=== PATIENT | male | born 1960 | race Caucasian/White ===

== ENCOUNTER 2016-12-28 21:20 | Emergency (ER) | payer OTHER ==
[2016-12-28 21:43] VITALS: PULSE 80; TEMP 98.6; BMI 22.9
[2016-12-28] MEDS ORDERED: METOPROLOL TARTRATE 5 MG/5 ML VIAL IVPUSH ONE (21:56)
--- NOTE | 2016-12-28 21:56 | PDOC ---
History of Present Illness - History of Present Illness Initial Comments: 12/28/16 21:59 The patient is a 56-year-old male, with a significant past medical history of HTN, cardiac stent (placed in June after getting cardiac workup), who presents to the ED with nose bleed. Patient states that he was walking when he sneezed and noted blood coming from his left nostril. Pt was not able to control the bleeding and reported to the ED for further evaluation. Patient is actively bleeding from nose in ER. The patient denies any nausea or vomiting. The patient denies any dizziness or lightheadedness. <Violetta Gage - Last Filed: 12/28/16 23:13> - General History Source: Patient <Kenan Mccall - Last Filed: 12/29/16 01:21> - General Chief Complaint: Hemoptysis Stated Complaint: NOSEBLEED Time Seen by Provider: 12/28/16 21:34 Past History <Violetta Gage - Last Filed: 12/28/16 23:13> - Past Medical History HTN: Yes - Psycho/Social/Smoking Cessation Hx Suicidal Ideation: No Smoking History: Current every day smoker Number of Cigarettes Smoked Daily: 20 Information on smoking cessation initiated: No Hx Alcohol Use: No Drug/Substance Use Hx: No Substance Use Type: None <Kenan Mccall - Last Filed: 12/29/16 01:21> - Past Medical History Allergies/Adverse Reactions: Allergies Allergy/AdvReac Type Severity Reaction Status Date / Time No Known Allergies Allergy Verified 12/28/16 21:26 Home Medications: Ambulatory Orders Unobtainable [Unobtainable] 12/28/16 Review of Systems - Review of Systems Able to Perform ROS?: Yes Comments:: 12/28/16 21:59 CONSTITUTIONAL: Absent: fever, no chills, no fatigue EYES: Absent: visual changes ENT: Present: nosebleed Absent: ear pain, no sore throat CARDIOVASCULAR: Absent: chest pain, no palpitations RESPIRATORY: Absent: cough, no SOB GI: Absent: abdominal pain, no nausea, no vomiting, no constipation, no diarrhea GENITOURINARY: Absent: dysuria, no frequency, no hematuria MUSKULOSKELETAL: Absent: back pain, no arthralgia, no myalgia SKIN: Absent: rash NEURO: Absent: headache <Violetta Gage - Last Filed: 12/28/16 23:13> *Physical Exam - Vital Signs Last Vital Signs Temp Pulse Resp BP Pulse Ox 98.6 F 80 18 166/109 99 12/28/16 21:24 12/28/16 21:24 12/28/16 21:24 12/28/16 21:24 12/28/16 21:24 - Physical Exam Comments: 12/28/16 21:59 GENERAL: Well-appearing, well-nourished. No apparent distress. HEENT: Normocephalic, atraumatic. PERRL, EOM intact. +Blood coming from left nostril. CARDIOVASCULAR: Normal S1, S2. Regular rate and rhythm. PULMONARY: Clear to auscultation bilaterally. ABDOMEN: Soft, non-distended, non-tender. EXTREMITIES: Normal ROM in all four extremities. No gross deformities. SKIN: Warm, dry. No rash NEUROLOGICAL: No focal neurological deficits. <Violetta Gage - Last Filed: 12/28/16 23:13> - Vital Signs Last Vital Signs Temp Pulse Resp BP Pulse Ox 98.6 F 80 18 166/109 99 12/28/16 21:24 12/28/16 21:24 12/28/16 21:24 12/28/16 21:24 12/28/16 21:24 <Kenan Mccall - Last Filed: 12/29/16 01:21> ED Treatment Course - LABORATORY CBC & Chemistry Diagram: 12/28/16 22:00 12/28/16 22:00 <Violetta Gage - Last Filed: 12/28/16 23:13> - LABORATORY CBC & Chemistry Diagram: 12/28/16 22:00 12/28/16 22:00 <Kenan Mccall - Last Filed: 12/29/16 01:21> Medical Decision Making - Medical Decision Making 12/28/16 23:07 Dr. Mccall: The scribe's documentation has been prepared under my direction and personally reviewed by me in its entirery. I confirm that the note above accurately reflects all work, treatment, procedures, and medical decision making performed by me. used inflatable Rhino rocket to left nares to tamponade bleeding will observe 12/29/16 01:19 Now right side is packed with another Rhino rocket. Pt will be discharged to follow up with ENT later this morning. <Kenan Mccall - Last Filed: 12/29/16 01:21> *DC/Admit/Observation/Transfer - Attestations Scribe Attestion: 12/28/16 22:00 Documentation prepared by Violetta Gage, acting as medical office assistant instructor for Kenan Mccall MD. <Violetta Gage - Last Filed: 12/28/16 23:13> - Discharge Dispostion Admit: No <Kenan Mccall - Last Filed: 12/29/16 01:21> Diagnosis at time of Disposition: Epistaxis - Discharge Dispostion Disposition: HOME - Referrals Referrals: Memo Sanchez MD [Staff Physician] - - Patient Instructions Printed Discharge Instructions: DI for Nosebleed Additional Instructions: Please see Dr. Sanchez in the morning to have packing removed. Sleep with head very elevated to prevent further complications. Say you need to be seen to have Rhino Rockets removed.
[2016-12-28] MEDS ORDERED: METOPROLOL TARTRATE 5 MG/5 ML VIAL ONE (22:00)
[2016-12-28 22:17] LABS: EOSINOPHIL 10.2 % (0-4.5); MCHC 33.4 g/dl (32.0-35.9); MEAN CELL VOLUME 98.6 fl (80-96); MEAN PLT VOLUME 7.8 fl (7.5-11.1); NEUTROPHILS 58.5 % (42.8-82.8); PLATELET COUNT 411 K/MM3 (134-434); RDW 13.8 % (11.9-15.9); WHITE BLOOD COUNT 13.2 K/mm3 (4.0-10.0)
[2016-12-28 22:31] LABS: INR 0.91 (0.82-1.09)
[2016-12-28 22:33] LABS: ACTIVATED PTT 32.7 SECONDS (26.9-34.4)
[2016-12-28 22:54] LABS: ALBUMIN 4.1 g/dl (3.4-5.0); ALK PHOS 97 U/L (45-117); ANION GAP 11 (8-16); BILIRUBIN,TOTAL 0.4 mg/dL (0.2-1.0); CALCIUM 8.9 mg/dL (8.5-10.1); CO2 22 mmol/L (21-32); CREATININE 0.9 mg/dL (0.7-1.3); GLUCOSE,RANDOM 105 mg/dL (74-106); SGOT/AST 19 U/L (15-37); SGPT/ALT 24 U/L (12-78); TOT PROT 7.2 g/dl (6.4-8.2)
[2016-12-29 01:01] VITALS: BP 119/85
--- NOTE | 2016-12-29 04:19 | PN ---
<Alesia Rodriguez - Last Filed: 12/29/16 04:17> Teaching Attending Note Name of Resident: Nessa Corrales ASSESSMENT AND PLAN: <Tonya Mckeon - Last Filed: 12/29/16 04:51> Teaching Attending Note ATTENDING PHYSICIAN STATEMENT I saw and evaluated the patient. I reviewed the resident's note and discussed the case with the resident. I agree with the resident's findings and plan as documented. SUBJECTIVE: 56 yo M presents to the ED with a persistent nose bleed. Pt states that earlier today he was walking and his R nostril started spontaneously bleeding. Pt reported to the ED and was discharged with a rhino rocket but sneezed it out and returned to the ED still bleeding. Pt states he had nosebleeds as a kid but hasnt had once since his childhood. PMHx: HTN, cardiac stent (placed in June after getting cardiac workup) Allergies: penicillin Family Hx: brother has ALS OBJECTIVE: Last Vital Signs Temp Pulse Resp BP Pulse Ox 98.6 F 80 18 119/85 99 12/28/16 21:24 12/28/16 22:09 12/28/16 21:24 12/29/16 01:01 12/28/16 21:24 GENERAL: Awake, alert, and fully oriented, in no acute distress HEENT: Bilateral rhino rockets in place. PERRLA, EOMI. Moist mucosa. No JVD LUNGS: No distress, speaks full sentences, clear to auscultation bilaterally HEART: Regular rate and rhythm, normal S1 and S2, no murmurs, rubs or gallops, peripheral pulses normal and equal bilaterally. ABDOMEN: Soft, nontender, normoactive bowel sounds. No guarding, no rebound. No masses EXTREMITIES: Normal inspection, Normal range of motion, no edema. No clubbing or Cyanosis. NEUROLOGICAL: Cranial nerves II through XII grossly intact. Normal speech, normal gait, no focal sensorimotor deficits SKIN: Warm, Dry, normal turgor, no rashes or lesions noted. CBCD WBC 13.2 K/mm3 (4.0-10.0) H 12/28/16 22:00 RBC 4.20 M/mm3 (4.00-5.60) 12/28/16 22:00 Hgb 13.8 GM/dL (11.7-16.9) 12/28/16 22:00 Hct 41.4 % (35.4-49) 12/28/16 22:00 MCV 98.6 fl (80-96) H 12/28/16 22:00 MCHC 33.4 g/dl (32.0-35.9) 12/28/16 22:00 RDW 13.8 % (11.9-15.9) 12/28/16 22:00 Plt Count 411 K/MM3 (134-434) 12/28/16 22:00 MPV 7.8 fl (7.5-11.1) 12/28/16 22:00 CMP Sodium 141 mmol/L (136-145) 12/28/16 22:00 Potassium 4.1 mmol/L (3.5-5.1) 12/28/16 22:00 Chloride 108 mmol/L (98-107) H 12/28/16 22:00 Carbon Dioxide 22 mmol/L (21-32) 12/28/16 22:00 Anion Gap 11 (8-16) 12/28/16 22:00 BUN 15 mg/dL (7-18) 12/28/16 22:00 Creatinine 0.9 mg/dL (0.7-1.3) 12/28/16 22:00 Creat Clearance w eGFR > 60 (>60) 12/28/16 22:00 Calcium 8.9 mg/dL (8.5-10.1) 12/28/16 22:00 Total Bilirubin 0.4 mg/dL (0.2-1.0) 12/28/16 22:00 AST 19 U/L (15-37) 12/28/16 22:00 ALT 24 U/L (12-78) 12/28/16 22:00 Alkaline Phosphatase 97 U/L (45-117) 12/28/16 22:00 Total Protein 7.2 g/dl (6.4-8.2) 12/28/16 22:00 Albumin 4.1 g/dl (3.4-5.0) 12/28/16 22:00 ASSESSMENT AND PLAN: 1.) Epistaxis - 1 STAT dose of IV Clindamycin - ENT consult in AM - hold aspirin and anticoagulation therapy for today. Restart tomorrow. - Zofran PRN - Repeat CBC in 12 hours Documentation is prepared by Tonya Sermania acting as medical videographer for Alesia Rodriguez M.D.
== END 2016-12-29 01:28 | disposition home or self-care (01) ==
LOC: JER 21:20
PROC: 2Y41X5Z Packing of Nasal Region using Packing Material (ICD-10-PCS; principal; 2016-12-28)
PROC: 3E033GC Introduction of Other Therapeutic Substance into Peripheral Vein, Percutaneous Approach (ICD-10-PCS; 2016-12-28)
DX: R04.0 Epistaxis (principal); I10 Essential (primary) hypertension; Z95.5 Presence of coronary angioplasty implant and graft; F17.210 Nicotine dependence, cigarettes, uncomplicated
CPT/HCPCS: 36415; 80053; 85025; 85610; 85730; 86850; 86900; 86901; 99282-25

== ENCOUNTER 2016-12-29 03:07 | Observation (INO) | payer OTHER ==
[2016-12-29] MEDS ORDERED: SODIUM CHLORIDE 1,000 ML IV STA (03:18)
--- NOTE | 2016-12-29 03:18 | PDOC ---
History of Present Illness - General History Source: Patient Exam Limitations: No Limitations - History of Present Illness Initial Comments: 12/29/16 03:51 The patient is a 56-year-old male, with a significant past medical history of HTN, cardiac stent (placed in June after getting cardiac workup), who presents to the ED with nose bleed. Patient states that he was walking when he sneezed and noted blood coming from his left nostril. Pt bleeding had stopped and patient was discharged from ED. While driving home, patient wa experiencing some discomfort with the rhino rockets in his nostrils. Pt presents to the ED once again after expelling rhino rockets from nose by sneezing. The patient denies having any other complaints. <Violetta Gage - Last Filed: 12/29/16 05:03> - General History Source: Patient <Kenan Mccall - Last Filed: 01/01/17 20:21> - General Stated Complaint: NOSEBLEED Time Seen by Provider: 12/29/16 03:12 Past History <Violetta Gage - Last Filed: 12/29/16 05:03> - Past Medical History HTN: Yes - Psycho/Social/Smoking Cessation Hx Suicidal Ideation: No Smoking History: Current every day smoker Number of Cigarettes Smoked Daily: 20 Hx Alcohol Use: No Drug/Substance Use Hx: No Substance Use Type: None <Kenan Mccall - Last Filed: 01/01/17 20:21> - Past Medical History Allergies/Adverse Reactions: Allergies Allergy/AdvReac Type Severity Reaction Status Date / Time No Known Allergies Allergy Verified 12/29/16 03:20 Home Medications: Ambulatory Orders Amlodipine Besylate 5 mg PO DAILY 12/29/16 Aspirin [ASA -] 81 mg PO DAILY 12/29/16 Atorvastatin Ca [Lipitor] 40 mg PO DAILY 12/29/16 Metoprolol Succinate [Toprol XL -] 100 mg PO DAILY 12/29/16 Prasugrel Hydrochloride [Effient -] 10 mg PO DAILY 12/29/16 Oxymetazoline 0.05% Nasal Soln [Afrin -] 1 spray NS DAILY PRN #1 spray 12/30/16 Review of Systems - Review of Systems Able to Perform ROS?: Yes Comments:: 12/29/16 03:51 CONSTITUTIONAL: Absent: fever, no chills, no fatigue EYES: Absent: visual changes ENT: Present: nosebleed Absent: ear pain, no sore throat CARDIOVASCULAR: Absent: chest pain, no palpitations RESPIRATORY: Absent: cough, no SOB GI: Absent: abdominal pain, no nausea, no vomiting, no constipation, no diarrhea GENITOURINARY: Absent: dysuria, no frequency, no hematuria MUSKULOSKELETAL: Absent: back pain, no arthralgia, no myalgia SKIN: Absent: rash NEURO: Absent: headache <Violetta Gage - Last Filed: 12/29/16 05:03> *Physical Exam - Vital Signs Last Vital Signs Temp Pulse Resp BP Pulse Ox 98.3 F 65 19 100/75 97 12/29/16 03:21 12/29/16 03:21 12/29/16 03:21 12/29/16 03:21 12/29/16 03:21 - Physical Exam Comments: 12/29/16 03:52 GENERAL: Well-appearing, well-nourished. No apparent distress. HEENT: Normocephalic, atraumatic. PERRL, EOM intact. +Bilateral bright red blood from nares. CARDIOVASCULAR: Normal S1, S2. Regular rate and rhythm. PULMONARY: Clear to auscultation bilaterally. ABDOMEN: Soft, non-distended, non-tender. EXTREMITIES: Normal ROM in all four extremities. No gross deformities. SKIN: Warm, dry. No rash NEUROLOGICAL: No focal neurological deficits. <TooVioletta - Last Filed: 12/29/16 05:03> Heart Score/ECG Review - ECG Intrepretation Comment:: 12/29/16 05:03 EKG was reviewed by Dr. Mccall at 03:42. Impression: Sinus rhythm with short ID with occasional premature ventricular complexes. Vent. rate: 92 bpm ID interval: 110 ms QTc: 422 ms <Violetta Gage - Last Filed: 12/29/16 05:03> ED Treatment Course - LABORATORY CBC & Chemistry Diagram: 12/30/16 15:10 <Kenan Mccall - Last Filed: 01/01/17 20:21> Medical Decision Making - Medical Decision Making 01/01/17 20:20 Dr. Mccall: The scribe's documentation has been prepared under my direction and personally reviewed by me in its entirery. I confirm that the note above accurately reflects all work, treatment, procedures, and medical decision making performed by me. <Kenan Mccall - Last Filed: 01/01/17 20:21> *DC/Admit/Observation/Transfer - Attestations Scribe Attestion: 12/29/16 03:53 Documentation prepared by Violetta Gage, acting as medical record transcriber for Kenan Mccall MD. <Violetta Gage - Last Filed: 12/29/16 05:03> - Discharge Dispostion Admit: Yes <Kenan Mccall - Last Filed: 01/01/17 20:21> Diagnosis at time of Disposition: Epistaxis - Discharge Dispostion Disposition: HOME Condition at time of disposition: Stable - Prescriptions - Referrals
[2016-12-29] MEDS ORDERED: ONDANSETRON 4 MG/2 ML VIAL IVPB PRN (04:36)
[2016-12-29] MEDS ORDERED: ONDANSETRON 4 MG/2 ML VIAL IVPUSH ONE (04:36)
[2016-12-29] MEDS ORDERED: CLINDAMYCIN 300 MG PREMIX IVPB 50 ML IVPB ONE (04:56)
--- NOTE | 2016-12-29 05:03 | HP ---
CHIEF COMPLAINT: nose bleed PCP: HISTORY OF PRESENT ILLNESS: This is a 56 year old male with a past medical history of hypertension, CAD, s/ p cardiac stent in June, presents to the emergency room with complaints of non stop nosebleed. Patient was in his car driving and his left nostril began to bleed. HE came to the ER, packing was placed, he was sent home. Patient returns to the ER after nose again started to bleed. The only related event he can recall is that he sneezed. He does not get nose bleeds regularly. He s on aspirin and effient daily. He drinks alcohol daily. He drank 3-4 beers today. Smokes 1ppd. He states he recently had check up with primary, no active issue. IN the ER he was started on IVF, and bilateral rhino rockets were placed. He was given zofran for nausea. Hemoglobin and hematocrit remain stable. Recent Travel: no PAST MEDICAL HISTORY: hypertension, CAD PAST SURGICAL HISTORY: cardiac stent Social History: Smoking:yes 1ppd Alcohol:yeas depends; 3-4; 5-6 drinks daily Drugs: no Family History: Allergies No Known Allergies Allergy (Verified 12/29/16 03:20) HOME MEDICATIONS: Home Medications Medication Instructions Recorded Aspirin [ASA -] 81 mg PO DAILY 12/29/16 Metoprolol Succinate [Toprol Xl -] 25 mg PO DAILY 12/29/16 Prasugrel Hydrochloride [Effient -] 5 mg PO DAILY 12/29/16 REVIEW OF SYSTEMS CONSTITUTIONAL: Absent: fever, chills, diaphoresis, generalized weakness, malaise, loss of appetite, weight change HEENT: Positive: nose bleed Absent: rhinorrhea, nasal congestion, throat pain, throat swelling, difficulty swallowing, mouth swelling, ear pain, eye pain, visual changes CARDIOVASCULAR: Absent: chest pain, syncope, palpitations, irregular heart rate, lightheadedness , peripheral edema RESPIRATORY: Absent: cough, shortness of breath, dyspnea with exertion, orthopnea, wheezing, stridor, hemoptysis GASTROINTESTINAL: Absent: abdominal pain, abdominal distension, nausea, vomiting, diarrhea, constipation, melena, hematochezia GENITOURINARY: Absent: dysuria, frequency, urgency, hesitancy, hematuria, flank pain, genital pain MUSCULOSKELETAL: Absent: myalgia, arthralgia, joint swelling, back pain, neck pain SKIN: Absent: rash, itching, pallor HEMATOLOGIC/IMMUNOLOGIC: Absent: easy bleeding, easy bruising, lymphadenopathy, frequent infections ENDOCRINE: Absent: unexplained weight gain, unexplained weight loss, heat intolerance, cold intolerance NEUROLOGIC: Absent: headache, focal weakness or paresthesias, dizziness, unsteady gait, seizure, mental status changes, bladder or bowel incontinence PSYCHIATRIC: Absent: anxiety, depression, suicidal or homicidal ideation, hallucinations. PHYSICAL EXAMINATION Vital Signs - 24 hr 12/29/16 03:21 Temperature 98.3 F Pulse Rate 65 Respiratory 19 Rate Blood Pressure 100/75 O2 Sat by Pulse 97 Oximetry (%) GENERAL: Awake, alert, and fully oriented, in no acute distress, sitting up in bed coughing and spitting out blood. HEAD: Normal with no signs of trauma. EYES: Pupils equal, round and reactive to light, extraocular movements intact, sclera anicteric, conjunctiva clear. No lid lag. EARS, NOSE, THROAT: Ears normal, nares with bilateral bloody rhino rockets, oropharynx with dried and new blood NECK: Normal range of motion, supple without lymphadenopathy, JVD, or masses. LUNGS: Breath sounds equal, clear to auscultation bilaterally. No wheezes, and no crackles. No accessory muscle use. HEART: tachycardic and rhythm, normal S1 and S2 without murmur, rub or gallop. ABDOMEN: Soft, nontender, distended, normoactive bowel sounds, no guarding, no rebound, no masses. No hepatomegaly or splenomegaly. MUSCULOSKELETAL: Normal range of motion at all joints. No bony deformities or tenderness. No CVA tenderness. UPPER EXTREMITIES: 2+ pulses, warm, well-perfused. No cyanosis. No clubbing. No peripheral edema. LOWER EXTREMITIES: 2+ pulses, warm, well-perfused. No calf tenderness. No peripheral edema. NEUROLOGICAL: Cranial nerves II-XII intact. Normal speech. Normal gait. PSYCHIATRIC: Cooperative. Good eye contact. Appropriate mood and affect. SKIN: Warm, dry, normal turgor, no rashes or lesions noted, normal capillary refill. ASSESSMENT/PLAN: This is a 56 year old male with a past medical history of hypertension and CAD, presents to the emergency room with epistaxis, admitted under observation. #Epistaxis: -IVF, zofran 4mg q6h prn -bilateral rhino rockets -1 stat dose of clindamycin 300mg -hold anticoagulation -monitor heme/hct ; repeat in 12 hrs -ENT consult #leuckocytosis: -no acute signs of infection; no fever, chills, cough, sputum production -trend FEN Fluids: 125mls.hr NS Electrolytes: wnl Diet: low sodium VTE prophylaxis: n/a; currently bleeding Disposition: observation Problem List - Problem (1) Epistaxis Code(s): R04.0 - EPISTAXIS Visit type - Emergency Visit Emergency Visit: Yes ED Registration Date: 12/29/16 Care time: The patient presented to the Emergency Department on the above date and was hospitalized for further evaluation of their emergent condition. - New Patient This patient is new to me today: Yes Date on this admission: 12/29/16 - Critical Care Critical Care patient: No
[2016-12-29] MEDS ORDERED: ONDANSETRON 4 MG/2 ML VIAL ONE (05:40)
[2016-12-29] MEDS ORDERED: CLINDAMYCIN PHOSPHATE 600 MG/4 ML VIAL ONE (05:42)
[2016-12-29] MEDS: SODIUM CHLORIDE 1,000 ML IV SCH ×2 (05:52→19:00)
[2016-12-29 08:57] VITALS: BMI 21.9
[2016-12-29] MEDS ORDERED: METOPROLOL SUCCINATE 25 MG TAB.SR.24H (FP) PO SCH ×2 (10:00→15:01)
--- NOTE | 2016-12-29 10:23 | EKG ---
Test Reason : Blood Pressure : / mmHG Vent. Rate : 092 BPM Atrial Rate : 092 BPM P-R Int : 110 ms QRS Dur : 084 ms QT Int : 342 ms P-R-T Axes : 060 048 052 degrees QTc Int : 422 ms POOR DATA QUALITY, INTERPRETATION MAY BE ADVERSELY AFFECTED SINUS RHYTHM WITH SHORT OK WITH OCCASIONAL PREMATURE VENTRICULAR COMPLEXES NO PREVIOUS ECGS AVAILABLE Confirmed by BHUMI VERMA MD ([id number]) on 12/29/2016 10:22:56 AM Referred By: Confirmed By:BHUMI VERMA MD
--- NOTE | 2016-12-29 11:11 | PN ---
Physical Exam: SUBJECTIVE: Patient stated he blew off the rhino rockets packing and there has not been bleeding since last night. Denies genetic bleeding disorder, nasal use of cocaine or steroid, h/o nasal polylp, trauma, hempotypsis, dizziness, palpitation, chest pain, shortness of breath, n/v, fever or chills. OBJECTIVE: Vital Signs Period Temp Pulse Resp BP Sys/Mc[place]ur Pulse Ox Last 24 Hr 96 18 106-106/70-70 95-100 GENERAL: AAOx3, in no acute distress. HEAD: NT, AC EYES: PERRLA, sclera anicteric, conjunctiva clear ENT: dry blood in b/l nostrils, nares patent, no erythema, drainage, or mass, oropharynx clear without exudates, moist mucous membranes. NECK: Trachea midline, full range of motion, supple. LUNGS: CTAB HEART: RRR, S1, S2 without murmur, rub or gallop. ABDOMEN: Soft, nontender, nondistended, normoactive bowel sounds, no guarding, no rebound, no hepatosplenomegaly, no masses. EXTREMITIES: 2+ pulses, warm, well-perfused, no edema. NEUROLOGICAL: Cranial nerves II through XII grossly intact. Normal speech, gait not observed. PSYCH: Normal mood, normal affect. SKIN: Warm, dry, normal turgor, no rashes or lesions noted CBCD WBC 12.0 K/mm3 (4.0-10.0) H 12/29/16 13:40 RBC 2.71 M/mm3 (4.00-5.60) L 12/29/16 13:40 Hgb 9.0 GM/dL (11.7-16.9) L 12/29/16 13:40 Hct 26.8 % (35.4-49) L 12/29/16 13:40 MCV 99.0 fl (80-96) H 12/29/16 13:40 MCHC 33.7 g/dl (32.0-35.9) 12/29/16 13:40 RDW 13.9 % (11.9-15.9) 12/29/16 13:40 Plt Count 325 K/MM3 (134-434) 12/29/16 13:40 MPV 7.7 fl (7.5-11.1) 12/29/16 13:40 Active Medications Generic Name Dose Route Start Last Admin Trade Name Freq PRN Reason Stop Dose Admin Sodium Chloride 1,000 mls @ 125 mls/hr 12/29/16 05:00 12/29/16 05:52 Normal Saline - IV 125 mls/hr ASDIR SINA Administration Metoprolol Succinate 25 mg 12/29/16 10:00 Toprol Xl - PO DAILY SINA Ondansetron HCl 4 mg 12/29/16 04:36 Zofran Injection IVPB Q4H PRN NAUSEA AND/OR VOMITING ASSESSMENT/PLAN: 56 yo M with h/o HTN, CAD s/p stent on dual anti-platelet therapy (ASA and plasugrel) admitted to med-surg for epistaxis. Epistaxis - Resolved - Likely 2/2 anti-coagulants * ASA and plasugrel held - Cont. IVF - Rhino rocket and oxymetazoline nasal spray if re-bleed - ENT consult CAD, s/p stent - AC held - f/u with clay caster to re-assess bleeding risk HTN - hypotensive now - Hold toprolol FEN - IVF - Lytes normal - Na controlled diet Prophylaxis - DVT: AC held - GI: not indicated Dispo - Awaiting ENT consult Visit type - Emergency Visit Emergency Visit: No - New Patient This patient is new to me today: Yes Date on this admission: 12/30/16 - Critical Care Critical Care patient: No
[2016-12-29 11:12] LABS: BASOPHIL 0.5 % (0-2.0); EOSINOPHIL 1.9 % (0-4.5); MCH 33.3 pg (25.7-33.7); MCHC 33.3 g/dl (32.0-35.9); MEAN CELL VOLUME 100.2 fl (80-96); MEAN PLT VOLUME 7.9 fl (7.5-11.1); NEUTROPHILS 75.1 % (42.8-82.8); PLATELET COUNT 324 K/MM3 (134-434); RDW 13.9 % (11.9-15.9); WHITE BLOOD COUNT 13.1 K/mm3 (4.0-10.0)
[2016-12-29] MEDS: OXYMETAZOLINE 0.05% NASAL SOLUTION 15 ML BOTTLE NS PRN (13:00)
[2016-12-29 14:19] LABS: MCH 33.4 pg (25.7-33.7); MCHC 33.7 g/dl (32.0-35.9); MEAN PLT VOLUME 7.7 fl (7.5-11.1); PLATELET COUNT 325 K/MM3 (134-434); RDW 13.9 % (11.9-15.9)
[2016-12-29] MEDS ORDERED: PRASUGREL HCL 5 MG TAB PO SCH ×2 (14:45→15:01)
[2016-12-29] MEDS ORDERED: amLODIPine BESYLATE 10 MG TABLET (FP) PO SCH (14:45)
[2016-12-29] MEDS ORDERED: PT OWN MED DRAWER 7, Y5N ONE (16:25)
--- NOTE | 2016-12-29 16:27 | CON.ENT ---
Consult Consult Specialty:: ENT Reason for Consultation:: Nosebleed - History of Present Illness Chief Complaint: Sudden heavy nosebleed History of Present Illness: 56 yo male with hx of cardiac stent, on anticoagulation, who notes heavy nosebleed x2 yesterday requiring trips to the ER. Pt initially packed and sent home, he sneezed and pack was expelled. Bleeding returned, he then came to [facility] ER via ambulance. Bilateral packing was placed with control and was admitted. Again this am, he sneezed and packs came out. No bleeding since. He notes minor nosebleeds in the past. - History Source History Provided By: Patient Limitations to Obtaining History: No Limitations - Past Medical History Cardio/Vascular: Yes: CAD, HTN ENT: Yes: Other (nosebleeds) - Past Surgical History Additional Surgical History: cardiac stent - Alcohol/Substance Use Hx Alcohol Use: No - Smoking History Smoking history: Current every day smoker Have you smoked in the past 12 months: Yes Aproximately how many cigarettes per day: 20 Home Medications - Allergies Allergies/Adverse Reactions: Allergies Allergy/AdvReac Type Severity Reaction Status Date / Time No Known Allergies Allergy Verified 12/29/16 03:20 - Home Medications Home Medications: Ambulatory Orders Amlodipine Besylate 5 mg PO DAILY 12/29/16 Aspirin [ASA -] 81 mg PO DAILY 12/29/16 Atorvastatin Ca [Lipitor] 40 mg PO DAILY 12/29/16 Metoprolol Succinate [Toprol Xl -] 100 mg PO DAILY 12/29/16 Prasugrel Hydrochloride [Effient -] 10 mg PO DAILY 12/29/16 Family Disease History - Family Disease History Family History: Unremarkable Physical Exam-ENT Vital Signs: Vital Signs Temperature 98.3 F 12/29/16 13:53 Pulse Rate 76 12/29/16 13:53 Respiratory Rate 20 12/29/16 13:53 Blood Pressure 115/63 12/29/16 13:53 O2 Sat by Pulse Oximetry (%) 95 12/29/16 08:00 Problem List - Problems (1) Epistaxis Assessment/Plan: Recent heavy nosebleed- controlled with packing which has since come out. No lesions or residual bleeding noted on endoscopy. Keep nose moist with saline. Monitor and treat lowered Hematocrit as needed. Repack if bleeding occurs. Code(s): R04.0 - EPISTAXIS Procedure Note Procedure: Nasal endoscopy- after obtaining verbal consent, tropical anesthetic/ decongestant sprayed. Flexible endoscope passed into nasal cavities. Findings include- mildly deviated septum, pale mucosa. NO active bleeding sites, clots or scabs noted. NO lesions or infection noted.
--- NOTE | 2016-12-29 17:41 | PN ---
Teaching Attending Note Name of Resident: Meek Preciado ATTENDING PHYSICIAN STATEMENT I saw and evaluated the patient. I reviewed the resident's note and discussed the case with the resident. I agree with the resident's findings and plan as documented. SUBJECTIVE: No further epistaxis. OBJECTIVE: Vital Signs Period Temp Pulse Resp BP Sys/Mcarthur Pulse Ox Last 24 Hr 98 F-98.3 F 65-96 18-20 100-115/63-75 95-100 HEART: S1S2, RRR LUNGS: Clear ABDOMEN: Soft, non-tender, non-distended, normal BS EXTREMITIES: No edema ASSESSMENT AND PLAN: This is a 56 year old man with a history of HTN, CAD, stents who presented with a nosebleed. 1. Acute blood loss anemia secondary to epistaxis - No further bleeding - ENT consult appreciated - Will resume aspirin and Effient as cardiac stent was placed 6 months ago and monitor for bleeding 2. CAD, history of stent - Resume aspirin, Effient - Continue Toprol XL 3. HTN - hypotensive now - Hold toprolol 4. Leukocytosis - Likely reactive - Improving
[2016-12-29] MEDS: ASPIRIN 81 MG CHEWABLE TABLETS PO SCH (18:34)
[2016-12-29] MEDS: amLODIPine BESYLATE 10 MG TABLET (FP) PO SCH (18:34)
[2016-12-29] MEDS: PRASUGREL HCL 10 MG TAB PO SCH (18:35)
[2016-12-29] MEDS: METOPROLOL SUCCINATE 100 MG TAB.SR.24H (FP) PO SCH (18:39)
[2016-12-29] MEDS ORDERED: ATORVASTATIN CA 40 MG TABLET (FP) PO SCH (22:00)
[2016-12-30] MEDS: OXYMETAZOLINE 0.05% NASAL SOLUTION 15 ML BOTTLE NS PRN (02:11)
[2016-12-30] MEDS ORDERED: PT OWN MED DRAWER 7, Y5N ONE ×2 (02:19→10:03)
[2016-12-30 07:28] LABS: MCH 33.6 pg (25.7-33.7); MCHC 33.7 g/dl (32.0-35.9); MEAN CELL VOLUME 99.6 fl (80-96); MEAN PLT VOLUME 7.7 fl (7.5-11.1); PLATELET COUNT 290 K/MM3 (134-434); RDW 13.8 % (11.9-15.9); WHITE BLOOD COUNT 10.5 K/mm3 (4.0-10.0)
[2016-12-30] MEDS: amLODIPine BESYLATE 10 MG TABLET (FP) PO SCH (10:09)
[2016-12-30] MEDS: METOPROLOL SUCCINATE 100 MG TAB.SR.24H (FP) PO SCH (10:10)
[2016-12-30] MEDS: PRASUGREL HCL 10 MG TAB PO SCH (10:11)
[2016-12-30] MEDS: ASPIRIN 81 MG CHEWABLE TABLETS PO SCH (10:11)
--- NOTE | 2016-12-30 12:28 | PN ---
Physical Exam: SUBJECTIVE: Patient reported no bleeding per nostril since admission. Denies fever, chills, dizziness, syncope, chest pain, palpitation, or shortness of breath. OBJECTIVE: Vital Signs Period Temp Pulse Resp BP Sys/Mcarthur Pulse Ox Last 24 Hr 98.3 F-99.1 F 62-87 18-20 95-115/50-71 GENERAL: AAOx3, in no acute distress. HEAD: NT, AC EYES: PERRLA, sclera anicteric, conjunctiva clear ENT: nares patent bilaterally, no erythema, drainage, or mass, oropharynx clear without exudates, moist mucous membranes. NECK: Trachea midline, full range of motion, supple. LUNGS: CTAB HEART: RRR, S1, S2 without murmur, rub or gallop. ABDOMEN: Soft, nontender, nondistended, normoactive bowel sounds, no guarding, no rebound, no hepatosplenomegaly, no masses. EXTREMITIES: 2+ pulses, warm, well-perfused, no edema. NEUROLOGICAL: Cranial nerves II through XII grossly intact. Normal speech, gait not observed. PSYCH: Normal mood, normal affect. SKIN: Warm, dry, normal turgor, no rashes or lesions noted CBCD WBC 10.5 K/mm3 (4.0-10.0) H 12/30/16 06:00 RBC 2.36 M/mm3 (4.00-5.60) L 12/30/16 06:00 Hgb 7.9 GM/dL (11.7-16.9) L D 12/30/16 06:00 Hct 23.5 % (35.4-49) L 12/30/16 06:00 MCV 99.6 fl (80-96) H 12/30/16 06:00 MCHC 33.7 g/dl (32.0-35.9) 12/30/16 06:00 RDW 13.8 % (11.9-15.9) 12/30/16 06:00 Plt Count 290 K/MM3 (134-434) 12/30/16 06:00 MPV 7.7 fl (7.5-11.1) 12/30/16 06:00 Active Medications Generic Name Dose Route Start Last Admin Trade Name Freq PRN Reason Stop Dose Admin Amlodipine Besylate 5 mg 12/29/16 15:15 12/30/16 10:09 Norvasc - PO Not Given DAILY SINA Aspirin 81 mg 12/29/16 14:45 12/30/16 10:11 Asa - PO 81 mg DAILY SINA Administration Atorvastatin Calcium 40 mg 12/29/16 22:00 12/29/16 22:30 Lipitor - PO 40 mg HS SINA Administration Sodium Chloride 1,000 mls @ 125 mls/hr 12/29/16 05:00 12/29/16 19:00 Normal Saline - IV 125 mls/hr ASDIR SINA Administration Metoprolol Succinate 100 mg 12/29/16 16:45 12/30/16 10:10 Toprol Xl - PO Not Given DAILY SINA Ondansetron HCl 4 mg 12/29/16 04:36 Zofran Injection IVPB Q4H PRN NAUSEA AND/OR VOMITING Oxymetazoline HCl 2 spray 12/29/16 11:09 12/30/16 02:11 Afrin - NS 2 spray BID PRN Administration NASAL CONGESTION Prasugrel 10 mg 12/29/16 16:45 12/30/16 10:11 Effient - PO 10 mg DAILY SINA Administration ASSESSMENT/PLAN: 56 yo M with h/o HTN, CAD s/p stent on dual anti-platelet therapy (ASA and plasugrel) admitted to med-surg for epistaxis. Acute anemia - Likely 2/2 epistaxis - H/H acute downward trend - 1 PRBC - Cont. IVF - Recheck CBC Epistaxis - Resolved - Likely 2/2 anti-coagulants - Oxymetazoline nasal spray BID - Nasal endoscopy showed no active bleeding per ENT CAD, s/p stent - Resumed AC - f/u with splitting machine operator helper as outpatient to re-assess bleeding risk HTN - BP in low 100s systolic - Cont. toprolol for now, may hold it if symptomatic FEN - IVF - Lytes normal - Na controlled diet Prophylaxis - DVT: on ASA and Effient - GI: not indicated Dispo - Trend H&H Visit type - Emergency Visit Emergency Visit: No - New Patient This patient is new to me today: No - Critical Care Critical Care patient: No
[2016-12-30 12:56] VITALS: PULSE 69
--- NOTE | 2016-12-30 14:23 | PN ---
Teaching Attending Note Name of Resident: Meek Preciado ATTENDING PHYSICIAN STATEMENT I saw and evaluated the patient. I reviewed the resident's note and discussed the case with the resident. I agree with the resident's findings and plan as documented. SUBJECTIVE: Patient has no complaints. No epistaxis. OBJECTIVE: Vital Signs Period Temp Pulse Resp BP Sys/Mcarthur Pulse Ox Last 24 Hr 98.4 F-99.1 F 62-87 18-18 95-106/50-71 HEART: S1S2, RRR LUNGS: Clear ABDOMEN: Soft, non-tender, non-distended, normal BS EXTREMITIES: No edema ASSESSMENT AND PLAN: This is a 56 year old man with a history of HTN, CAD, stents who presented with a nosebleed. 1. Acute blood loss anemia secondary to epistaxis - No further bleeding noted however, hemoglobin is 7.9 today - Transfuse 1 unit PRBCs as patient has history of CAD - If hemoglobin improves appropriately and BP is stable, he can be discharged home - Aspirin, Effient restarted as patient as history of CAD with stent 6 months ago 2. CAD, history of stent - Continue aspirin, Effient, Toprol XL 3. HTN - BP remains borderline low - Transfuse 1 unit PRBCs - Continue to hold Toprol XL, Norvasc 4. Leukocytosis - Likely reactive - Improving
[2016-12-30 15:23] VITALS: BP 110/75; TEMP 98.1
[2016-12-30 16:30] LABS: MCH 32.5 pg (25.7-33.7); MCHC 33.6 g/dl (32.0-35.9); MEAN CELL VOLUME 96.6 fl (80-96); MEAN PLT VOLUME 8.2 fl (7.5-11.1); PLATELET COUNT 306 K/MM3 (134-434); WHITE BLOOD COUNT 10.7 K/mm3 (4.0-10.0)
--- NOTE | 2016-12-30 17:18 | DS ---
Physical Exam: HOSPITAL COURSE: Date of Admission:12/29/16 56 yo M with h/o HTN, CAD s/p stent on dual anti-platelet therapy (ASA and plasugrel) admitted to [facility]-surg for epistaxis. He was treated with rhino rockets and bleeding stopped since ED admission. It's likely due to the dual anti-coagulants that the patient is taking for his freshly placed cardiac stents. Discussed with his cosmetologist and decision was made to cont. the patient on anticoagulation. ENT also saw the patient but no active bleeding was seen through endoscope. However, patient had acute drop in H&H, for which he received a unit of PRBC with appropriate response. He's now in stable condition to be discharged home. He will follow up with his cosmetologist to discuss the benefit vs. risk on anticoagulation and advised to come back in ED if he experience bleeding again. Date of Discharge: 12/30/16 Minutes to complete discharge: 35 Discharge Summary Reason For Visit: EPISTAXIS Condition: Stable - Instructions Diet, Activity, Other Instructions: Instruction for continuing care: You were admitted to the hospital because of nose bleed. It's likely because you are on blood thinners. You were observed for 24 hours and have not bled since admission. You also received 1 unit of blood transfusion because your blood count was low. You are now in stable condition to be discharged home. You need to follow up with your cosmetologist and primary doctor within a week to discuss the benefit vs. risk of blood thinners. Please use Afrin nasal spray once a day and come in to the ER if your nose bleeds again. Referrals: Scott Pires MD [Staff Physician] - Memo Martinez MD [Primary Care Provider] - Disposition: HOME - Home Medications Comprehensive Discharge Medication List: Ambulatory Orders Amlodipine Besylate 5 mg PO DAILY 12/29/16 Aspirin [ASA -] 81 mg PO DAILY 12/29/16 Atorvastatin Ca [Lipitor] 40 mg PO DAILY 12/29/16 Metoprolol Succinate [Toprol XL -] 100 mg PO DAILY 12/29/16 Prasugrel Hydrochloride [Effient -] 10 mg PO DAILY 12/29/16 Oxymetazoline 0.05% Nasal Soln [Afrin -] 1 spray NS DAILY PRN #1 spray 12/30/16 This patient is new to me today: No Emergency Visit: No Critical Care patient: No - Discharge Referral Referred to [facility] No
== END 2016-12-30 18:23 | disposition home or self-care (01) ==
LOC: JER 03:07 → JERBED 04:07 → INTOOBSV 05:24 → JERBED 05:24 → UNDOADMOB 05:24 → JERBED 07:32 → J7W 07:32
PROVIDERS: ADMIT Internal Medicine; ATTEND Internal Medicine
PROC: 09JY4ZZ Inspection of Sinus, Percutaneous Endoscopic Approach (ICD-10-PCS; principal; 2016-12-29)
PROC: 2Y41X5Z Packing of Nasal Region using Packing Material (ICD-10-PCS; 2016-12-29)
PROC: 3E03329 Introduction of Other Anti-infective into Peripheral Vein, Percutaneous Approach (ICD-10-PCS; 2016-12-29)
PROC: 3E033GC Introduction of Other Therapeutic Substance into Peripheral Vein, Percutaneous Approach (ICD-10-PCS; 2016-12-29)
PROC: 3E0337Z Introduction of Electrolytic and Water Balance Substance into Peripheral Vein, Percutaneous Approach (ICD-10-PCS; 2016-12-29)
DX: R04.0 Epistaxis (principal); I10 Essential (primary) hypertension; I25.10 Atherosclerotic heart disease of native coronary artery without angina pectoris; F17.210 Nicotine dependence, cigarettes, uncomplicated; Z95.5 Presence of coronary angioplasty implant and graft; Z79.82 Long term (current) use of aspirin; Z79.01 Long term (current) use of anticoagulants; D62 Acute posthemorrhagic anemia; D72.829 Elevated white blood cell count, unspecified
CPT/HCPCS: 36415; 36430; 36511; 71010-TC; 85025; 85027; 86850; 86900; 86901; 86922; 93005; 93010; 99284-25; G0378; P9038; P9058

== ENCOUNTER 2017-07-24 01:01 | Emergency (ER) | payer OTHER ==
[2017-07-24 03:25] VITALS: BP 145/94; PULSE 82; TEMP 97.9; BMI 22.9
[2017-07-24] MEDS ORDERED: ACETAMINOPHEN 325 MG TABLET (FP) PO ONE (04:10)
--- NOTE | 2017-07-24 04:11 | PDOC ---
History of Present Illness - History of Present Illness Initial Comments: 07/24/17 04:31 This is a 56 year old male with a past medical history of hypertension, CAD, s/ p cardiac stent in June 2016, who presents to the ED for left arm pain s/p slip and fall yesterday evening. Patient states that he slipped on an icy pavement while leaving a friends house. He states that he fell and hit back of head, denies loss of consciousness. He sustained a contusion to his left shoulder. Patient states that he proceeded to drive home. He states that the pain in his left shoulder is what brought him here to the ED. And complains that he is unable to move left shoulder. He denies nausea,vomiting. Admits to minimal headache. PCP: Memo Martinez <Mariana Thornton - Last Filed: 07/24/17 04:30> - General History Source: Patient <Kenan Mccall - Last Filed: 07/24/17 05:00> - General Chief Complaint: Injury Stated Complaint: FALL,HEAD/LT ARM PAIN Time Seen by Provider: 07/24/17 04:08 Past History <Mariana Thornton - Last Filed: 07/24/17 04:30> - Past Medical History COPD: No HTN: Yes Hypercholesterolemia: Yes - Surgical History Cardiac Surgery: (1 cardiac stent) - Suicide/Smoking/Psychosocial Hx Smoking History: Never smoked Have you smoked in the past 12 months: No Number of Cigarettes Smoked Daily: 20 Information on smoking cessation initiated: No 'Breaking Loose' booklet given: 12/29/16 Hx Alcohol Use: No Drug/Substance Use Hx: No Substance Use Type: None Hx Substance Use Treatment: No <Kenan Mccall - Last Filed: 07/24/17 05:00> - Past Medical History Allergies/Adverse Reactions: Allergies Allergy/AdvReac Type Severity Reaction Status Date / Time No Known Allergies Allergy Verified 07/24/17 03:23 Home Medications: Ambulatory Orders Amlodipine Besylate 10 mg PO DAILY 12/29/16 Aspirin [ASA -] 81 mg PO DAILY 12/29/16 Atorvastatin Ca [Lipitor] 40 mg PO DAILY 12/29/16 Metoprolol Succinate [Toprol XL -] 100 mg PO DAILY 12/29/16 Prasugrel Hydrochloride [Effient -] 10 mg PO DAILY 12/29/16 Oxymetazoline 0.05% Nasal Soln [Afrin -] 1 spray NS DAILY PRN #1 spray 12/30/16 Review of Systems - Review of Systems Comments:: 07/24/17 04:34 CONSTITUTIONAL: Absent: fever, no chills, no fatigue EYES: Absent: visual changes ENT: Absent: ear pain, no sore throat CARDIOVASCULAR: Absent: chest pain, no palpitations RESPIRATORY: Absent: cough, no SOB GI: Absent: abdominal pain, no nausea, no vomiting, no constipation, no diarrhea GENITOURINARY: Absent: dysuria, no frequency, no hematuria MUSCULOSKELETAL: Present: right shoulder pain Absent: back pain, no myalgia SKIN: Absent: rash Neurological: Present: minimal headache <Mariana Thornton - Last Filed: 07/24/17 04:30> *Physical Exam - Vital Signs Last Vital Signs Temp Pulse Resp BP Pulse Ox 97.9 F 82 14 145/94 99 07/24/17 03:23 07/24/17 03:23 07/24/17 03:23 07/24/17 03:23 07/24/17 03:23 - Physical Exam Comments: 07/24/17 04:31 GENERAL: Well developed, well nourished. Awake and alert. In no acute distress. HEENT: No superficial abrasion left occipital- parietal region.No raccoon or stubbs sign. Normocephalic, atraumatic. PERRLA, EOMI. No conjunctival pallor. Sclerae are non-icteric. Moist mucous membranes. Oropharynx is clear. NECK: Supple. Full ROM. No JVD. Carotid pulses 2+ and symmetric, without bruits. No thyromegaly. No lymphadenopathy. CARDIOVASCULAR: Regular rate and rhythm. No murmurs, rubs, or gallops. Distal pulses are 2+ and symmetric. PULMONARY: No evidence of respiratory distress. Lungs clear to auscultation bilaterally. No wheezing, rales or rhonchi. ABDOMINAL: Soft. Non-tender. Non-distended. No rebound or guarding. No organomegaly. Normoactive bowel sounds. MUSCULOSKELETAL Moderate swelling and tenderness to the medial and anterior aspect of left shoulder decreased range of motion secondary to pain. No gross deformity of joint. No CVA tenderness. EXTREMITIES: No cyanosis. No clubbing. No edema. No calf tenderness. SKIN: Warm and dry. Normal capillary refill. No rashes. No jaundice. NEUROLOGICAL: Alert, awake, appropriate. Cranial nerves 2-12 intact. No deficits to light touch and temperature in face, upper extremities and lower extremities. No motor deficits in the in face, upper extremities and lower extremities. Normoreflexic in the upper and lower extremities. Normal speech. Toes are downgoing bilaterally. Gait is normal without ataxia. PSYCHIATRIC: Cooperative. Good eye contact. Appropriate mood and affect. <Mariana Thornton - Last Filed: 07/24/17 04:30> - Vital Signs Last Vital Signs Temp Pulse Resp BP Pulse Ox 97.9 F 82 14 145/94 99 07/24/17 03:23 07/24/17 03:23 07/24/17 03:23 07/24/17 03:23 07/24/17 03:23 <Kenan Mccall - Last Filed: 07/24/17 05:00> *DC/Admit/Observation/Transfer - Attestations Scribe Attestion: 07/24/17 04:36 Documentation prepared by Mariana Thornton, acting as biomedical engineering director for Kenan Mccall MD. <Mariana Thornton - Last Filed: 07/24/17 04:30> - Discharge Dispostion Admit: No <Kenan Mccall - Last Filed: 07/24/17 05:00> Diagnosis at time of Disposition: Contusion, shoulder /upper arm Closed head injury Qualifiers: Encounter type: initial encounter Qualified Code(s): S09.90XA - Unspecified injury of head, initial encounter - Discharge Dispostion Disposition: HOME Condition at time of disposition: Stable - Referrals Referrals: Memo Martinez MD [Primary Care Provider] - - Patient Instructions Printed Discharge Instructions: DI for Closed Head Injury, DI for Shoulder Sprain, DI for Contusion Additional Instructions: Keep wound on head clean and dry. Wash with soap and water. Apply ice to left shoulder as for 10 mins 2-3 times a day. Use Tylenol for pain. Follow up with your doctor for re-evaluation. Return if any problems. - Post Discharge Activity
[2017-07-24] MEDS ORDERED: ACETAMINOPHEN 325 MG TABLET (FP) ONE (04:47)
== END 2017-07-24 05:34 | disposition home or self-care (01) ==
LOC: JER 01:01
DX: S09.8XXA Other specified injuries of head, initial encounter (principal); S40.012A Contusion of left shoulder, initial encounter; W00.0XXA Fall on same level due to ice and snow, initial encounter; Y93.01 Activity, walking, marching and hiking; Y92.480 Sidewalk as the place of occurrence of the external cause; Y99.8 Other external cause status; I25.10 Atherosclerotic heart disease of native coronary artery without angina pectoris; I10 Essential (primary) hypertension; Z95.5 Presence of coronary angioplasty implant and graft; E78.00 Pure hypercholesterolemia, unspecified
CPT/HCPCS: 70450-TC; 72125-TC; 73030-TC-LT; 73060-TC-LT; 99282-25

== ENCOUNTER 2018-08-19 21:29 | Observation (INO) | payer OTHER ==
--- NOTE | 2018-08-19 21:44 | PDOC ---
Rapid Medical Evaluation Medical Evaluation: Allergies Allergy/AdvReac Type Severity Reaction Status Date / Time No Known Allergies Allergy Verified 07/24/17 03:23 I have performed a brief in-person evaluation of this patient. The patient presents with a chief complaint of: hx of CAD s/p PCI, COPD, spitting up blood bright red blood from today; states is smoker and coughs occasionally; denies recent travel, sob, cp, night sweats, weight loss Pertinent physical exam findings: In NAD, lungs clear I have ordered the following: CXR The patient will proceed to the ED for further evaluation. 08/19/18 21:40
[2018-08-20 01:12] LABS: BASO % 0.8 % (0-2.0); EOS % 1.6 % (0-4.5); HEMATOCRIT 42.7 % (35.4-49); HEMOGLOBIN 15.2 GM/dL (11.7-16.9); LYMPH % 22.6 % (8-40); MCH 35.4 pg (25.7-33.7); MCHC 35.6 g/dl (32.0-35.9); MEAN CELL VOLUME 99.5 fl (80-96); MEAN PLT VOLUME 7.5 fl (7.5-11.1); MONO % 6.7 % (3.8-10.2); NEUT % 68.3 % (42.8-82.8); PLATELET COUNT 407 K/MM3 (134-434); RBC 4.29 M/mm3 (4.00-5.60); RDW 13.3 % (11.9-15.9); WHITE BLOOD COUNT 12.6 K/mm3 (4.0-10.0)
[2018-08-20 01:42] LABS: ALBUMIN 4.2 g/dl (3.4-5.0); ALK PHOS 109 U/L (45-117); ANION GAP 5 MMOL/L (8-16); BILIRUBIN,TOTAL 0.4 mg/dL (0.2-1); BLOOD UREA NITROGEN 17 mg/dL (7-18); CALCIUM 8.9 mg/dL (8.5-10.1); CHLORIDE 106 mmol/L (98-107); CO2 28 mmol/L (21-32); GLUCOSE,RANDOM 102 mg/dL (74-106); SGOT/AST 31 U/L (15-37); SGPT/ALT 34 U/L (13-61); SODIUM 139 mmol/L (136-145); TOT PROT 7.8 g/dl (6.4-8.2)
--- NOTE | 2018-08-20 01:56 | PDOC ---
History of Present Illness - General Chief Complaint: Hemoptysis Stated Complaint: COUGHING BLOOD Time Seen by Provider: 08/19/18 21:40 - History of Present Illness Initial Comments: 57 year old male with PMH of 08/20/18 04:05 Past History - Past Medical History Allergies/Adverse Reactions: Allergies Allergy/AdvReac Type Severity Reaction Status Date / Time Penicillins Allergy Verified 08/19/18 21:40 Home Medications: Ambulatory Orders Amlodipine Besylate 10 mg PO DAILY 12/29/16 Aspirin [ASA -] 81 mg PO DAILY 12/29/16 Atorvastatin Ca [Lipitor] 40 mg PO DAILY 12/29/16 Metoprolol Succinate [Toprol XL -] 100 mg PO DAILY 12/29/16 Prasugrel Hydrochloride [Effient -] 10 mg PO DAILY 12/29/16 Oxymetazoline 0.05% Nasal Soln [Afrin -] 1 spray NS DAILY PRN #1 spray 12/30/16 COPD: No HTN: Yes Hypercholesterolemia: Yes - Surgical History Cardiac Surgery: Yes (1 cardiac stent) - Suicide/Smoking/Psychosocial Hx Smoking History: Current every day smoker Have you smoked in the past 12 months: No Number of Cigarettes Smoked Daily: 20 Information on smoking cessation initiated: No 'Breaking Loose' booklet given: 12/29/16 Hx Alcohol Use: Yes (vodka/beer 5-8 drinks/day) Drug/Substance Use Hx: No Substance Use Type: None Hx Substance Use Treatment: No *Physical Exam - Vital Signs Last Vital Signs Temp Pulse Resp BP Pulse Ox 98.3 F 78 18 125/82 98 08/19/18 21:41 08/19/18 21:41 08/19/18 21:41 08/19/18 21:41 08/19/18 21:41 Moderate Sedation - Procedure Monitoring Vital Signs: Procedure Monitoring Vital Signs Temperature 98.3 F 08/19/18 21:41 Pulse Rate 78 08/19/18 21:41 Respiratory Rate 18 08/19/18 21:41 Blood Pressure 125/82 08/19/18 21:41 O2 Sat by Pulse Oximetry (%) 98 08/19/18 21:41 ED Treatment Course - LABORATORY CBC & Chemistry Diagram: 08/20/18 00:22 08/20/18 00:22 - ADDITIONAL ORDERS Additional order review: Laboratory Results 08/20/18 00:22 Sodium 139 Potassium 5.0 Chloride 106 Carbon Dioxide 28 Anion Gap 5 L BUN 17 Creatinine 1.0 Creat Clearance w eGFR > 60 Random Glucose 102 Calcium 8.9 Total Bilirubin 0.4 AST 31 ALT 34 Alkaline Phosphatase 109 Total Protein 7.8 Albumin 4.2 08/20/18 00:22 RBC 4.29 MCV 99.5 H MCHC 35.6 RDW 13.3 D MPV 7.5 Neutrophils % 68.3 Lymphocytes % 22.6 D Monocytes % 6.7 Eosinophils % 1.6 Basophils % 0.8 *DC/Admit/Observation/Transfer Diagnosis at time of Disposition: Hemoptysis - Discharge Dispostion Condition at time of disposition: Stable Decision to Admit order: Yes - Referrals Referrals: David Altamirano MD [Primary Care Provider] - - Patient Instructions Printed Discharge Instructions: DI for Hemoptysis Additional Instructions: You do not have a clot in your lungs or any bleeding in your lungs on our CT scan. This is likely from your bronchitis and cough. Please follow up with your edge grinder and you can show them the results of these scans that we performed. Please do not drink hot fluids and please stop smoking. - Post Discharge Activity
--- NOTE | 2018-08-20 02:09 | PDOC ---
Attending Attestation - Resident Resident Name: Roosevelt Guido - ED Attending Attestation I have performed the following: I have examined & evaluated the patient, The case was reviewed & discussed with the resident, I agree w/resident's findings & plan - HPI HPI: 08/20/18 04:01 Findings orally daily 57-year-old male with hemoptysis. Patient is an active smoker, approximately one pack per day. - Physicial Exam PE: 08/20/18 04:03 Agree with resident exam - Medical Decision Making 08/20/18 04:03 57-year-old male with hemoptysis and cough as well as active tobacco use. CTA shows no pulmonary embolism Patient's hemoptysis increased: The emergency department He will be admitted to medical service for further management
[2018-08-20] MEDS: ALBUTEROL SO4 2.5/IPRATROPIUM 0.5 INH SOL 3 ML VIAL.NEB. NEB SCH ×4 (04:30→05:56)
--- NOTE | 2018-08-20 05:09 | HP ---
CHIEF COMPLAINT:hemoptysis PCP: Dr. David Altamirano Quality Control Chemist - Dr. Tonya Astorga Knitter Hand - Dr. Demetrice Wright HISTORY OF PRESENT ILLNESS: Patient is a 57 year old male with past medical history of HTN, CAD s/p stent ( 2015), carotid artery stenosis (on prasugrel), suspected PAD, and COPD, presented with multiple episodes of hemoptysis for 1 day. Patient reported having a flu 2 weeks ago, for which he took Azithromycin for 3 days as prescribed by PCP. Interval history was unremarkable. This morning, patient coughed up bright red blood, estimating at least about 10 spoonfuls of blood until he was seen at the ED. Denies any chest pain, SOB, fever, chills, headache , dizziness, nausea, vomiting, abdominal pain, diarrhea. ER course was notable for: (1) (2) (3) Recent Travel:denies PAST MEDICAL HISTORY: HTN CAD s/p stent (2015) carotid artery stenosis (on prasugrel) suspected PAD COPD PAST SURGICAL HISTORY: none Social History: Smokinppd x 40 years Alcohol:1 pint of vodka per day x 40 years Drugs: denies Family History: Mother/Father: HTN, denies hx of cancer Allergies Penicillins Allergy (Verified 08/19/18 21:40) HOME MEDICATIONS: Home Medications Medication Instructions Recorded Amlodipine Besylate 10 mg PO DAILY 12/29/16 Aspirin [ASA -] 81 mg PO DAILY 12/29/16 Atorvastatin Ca [Lipitor] 40 mg PO DAILY 12/29/16 Metoprolol Succinate [Toprol XL -] 100 mg PO DAILY 12/29/16 Prasugrel Hydrochloride [Effient -] 10 mg PO DAILY 12/29/16 REVIEW OF SYSTEMS CONSTITUTIONAL: Absent: fever, chills, diaphoresis, generalized weakness, malaise, loss of appetite, weight change HEENT: Absent: rhinorrhea, nasal congestion, throat pain, throat swelling, difficulty swallowing, mouth swelling, ear pain, eye pain, visual changes CARDIOVASCULAR: Absent: chest pain, syncope, palpitations, irregular heart rate, lightheadedness , peripheral edema RESPIRATORY: Absent: cough, shortness of breath, dyspnea with exertion, orthopnea, wheezing, stridor, hemoptysis GASTROINTESTINAL: Absent: abdominal pain, abdominal distension, nausea, vomiting, diarrhea, constipation, melena, hematochezia GENITOURINARY: Absent: dysuria, frequency, urgency, hesitancy, hematuria, flank pain, genital pain MUSCULOSKELETAL: Absent: myalgia, arthralgia, joint swelling, back pain, neck pain SKIN: Absent: rash, itching, pallor HEMATOLOGIC/IMMUNOLOGIC: Absent: easy bleeding, easy bruising, lymphadenopathy, frequent infections ENDOCRINE: Absent: unexplained weight gain, unexplained weight loss, heat intolerance, cold intolerance NEUROLOGIC: Absent: headache, focal weakness or paresthesias, dizziness, unsteady gait, seizure, mental status changes, bladder or bowel incontinence PSYCHIATRIC: Absent: anxiety, depression, suicidal or homicidal ideation, hallucinations. PHYSICAL EXAMINATION Vital Signs - 24 hr 08/19/18 08/20/18 21:41 05:01 Temperature 98.3 F 98.4 F Pulse Rate 78 Pulse Rate [ 66 Apical] Respiratory 18 17 Rate Blood Pressure 125/82 Blood Pressure 150/100 [Right Arm] O2 Sat by Pulse 98 95 Oximetry (%) GENERAL: Awake, alert, and fully oriented, in no acute distress. HEAD: Normal with no signs of trauma. EYES: PERRLA, EOMI, sclera anicteric, conjunctiva clear. EARS, NOSE, THROAT: Ears normal, oropharynx clear without exudates. Moist mucous membranes. LUNGS: Breath sounds equal, clear to auscultation bilaterally. HEART: Regular rate and rhythm, normal S1 and S2 without murmur, rub or gallop. ABDOMEN: Soft, nontender, not distended, normoactive bowel sounds. MUSCULOSKELETAL: Normal range of motion at all joints. No bony deformities or tenderness. UPPER EXTREMITIES: 2+ pulses, warm, well-perfused. No peripheral edema. LOWER EXTREMITIES: 2+ pulses, warm, well-perfused. No peripheral edema. NEUROLOGICAL: Cranial nerves II-XII intact. Normal speech. Normal gait. PSYCHIATRIC: Cooperative. Good eye contact. Appropriate mood and affect. SKIN: Warm, dry, normal turgor, no rashes or lesions. Laboratory Results - last 24 hr 08/20/18 08/20/18 00:22 00:22 WBC 12.6 H RBC 4.29 Hgb 15.2 Hct 42.7 D MCV 99.5 H MCH 35.4 H MCHC 35.6 RDW 13.3 D Plt Count 407 D MPV 7.5 Absolute Neuts (auto) 8.6 H Neutrophils % 68.3 Lymphocytes % 22.6 D Monocytes % 6.7 Eosinophils % 1.6 Basophils % 0.8 Nucleated RBC % 0 Sodium 139 Potassium 5.0 Chloride 106 Carbon Dioxide 28 Anion Gap 5 L BUN 17 Creatinine 1.0 Creat Clearance w eGFR > 60 Random Glucose 102 Calcium 8.9 Total Bilirubin 0.4 AST 31 ALT 34 Alkaline Phosphatase 109 Total Protein 7.8 Albumin 4.2 ASSESSMENT/PLAN: Patient is a 57 year old male with past medical history of HTN, CAD s/p stent ( 2015), carotid artery stenosis (on prasugrel), suspected PAD, and COPD, presented with multiple episodes of hemoptysis for 1 day. #Hemoptysis: unclear etiology -May be 2/2 bronchitis vs PNA vs TB vs Lung CA -Initial chest CT showed no PE, scattered centrilobular bullous changes -Await final CT read -Check coags -Pulmonology (Dr. Garsia) consulted. -Will hold Prasugrel for now. -As per patient, he was initially put on Prasugrel for the cardiac stent in 2015 , and was continued on it because he was noted to have 90% carotid artery stenosis (unsure which side) and refused to undergo surgery. #Carotid Artery stenosis -hold home AC -Carotid doppler -Vascular (Dr. Mina) consulted #CAD -Continue home Metoprolol 100mg daily -Atorvastatin 40mg PO HS #Suspected PAD -LE arterial dopplers ordered. #Alcohol abuse -CIWA 0 -CIWA protocol with librium #COPD: not in acute exacerbation -On Spiriva and albuterol, but patient reported has not used any for years -Albuterol PRN for SOB #FEN -Not on any standing fluids -electrolytes wnl, routine bmp monitoring -NPO for now #Prophylaxis -Heparin 5000 units sq tid #Disposition -full code -admit to obs Visit type - Emergency Visit Emergency Visit: Yes ED Registration Date: 08/20/18 Care time: The patient presented to the Emergency Department on the above date and was hospitalized for further evaluation of their emergent condition. - New Patient This patient is new to me today: Yes Date on this admission: 08/20/18 - Critical Care Critical Care patient: No
--- NOTE | 2018-08-20 05:52 | PN ---
Teaching Attending Note Name of Resident: Aleyda Adorno ATTENDING PHYSICIAN STATEMENT I saw and evaluated the patient. I reviewed the resident's note and discussed the case with the resident. I agree with the resident's findings and plan as documented. SUBJECTIVE: Seen and examined; please refer to resident note for further historical information. Briefly, this is a 57 y/o CM with a PMH of EtOH abuse, 1PPD smoking, CAD c/p PCI 2016, suspected PVD, Carotid A. Stenosis with 90% occlusion (states he refused CEA in the past so he was kept on Effient). He presents with 1 day hemoptysis and estimates he coughed up 10 spoonfools of bright red blood. Nothing makes it better or worse, no stridor, no CP, protecting airway, no SOB/wheezing. He was told he is developing COPD and has a home inhaler that he has not been using. States he may have had PFTs a while ago but he doesn't know what the results were. He is hemodynamically stable and afebrile and was set to be discharged but continued to have hemoptysis so he was admitted to the medicine service for pulmonary consult. Denies family hx lung cancer. 10 sys ROS done and negative aside from HPI PMH, PSH, Social hx, Family hx pending Medication reconciliation pending OBJECTIVE: VS, labs, imaging pending NAD, AAO, Resting comfortably in bed NC AT EOMI PERRLA RRR s1/2 no mgr Scattered mild wheezes, w/ sym exp NT ND +BS CN2-12 wnl, no fnd Normal mood, appropriate affect Preliminary CT report shows no PE, scattered centrilobular bullous changes. Labs show ASSESSMENT AND PLAN: Patient presents with hemoptysis x1 day; he has a history of cardiac stents in 2016 (records pending) and per the patient he has been maintained on prasugrel for 90% L-sided carotid A stenosis that he refused intervention for in the past. 1) Hemoptysis -Unclear etiology; reviewed prelim CT result. -Check Coags, consult pulmonary -Hold AC, obtain his old CV records to verify stents are old (agrees with Dr. Salazar's old notes, though) and consult vascular and check carotid dopplers given the history of carotid A. stenosis 2) Carotid A. Stenosis -Have to hold home AC; dopplers and consult Dr. Mina to discuss CEA (given the hemoptysis this may be not in his best interest to be on chcf AC). Check old records 3) Hx CAD -Continue BB; resume other meds when clinically appropriate 4) Suspected PAD -States PCP wanted him assessed; checking LE arterial dopplers. Palpable pulses , no ulcers, etc. 5) Alcohol Abuse -CIWA protocol with librium 6) Likely COPD -Not in exacerbation; PRN nebs and FU with pulmonary 7) Tobacco abuse -Dip Stand Loader to quit; offer NRT FENA -PO fluids -PRN replete -Regular diet -As tolerated Full Code
[2018-08-20] MEDS ORDERED: ALBUTEROL SO4 2.5/IPRATROPIUM 0.5 INH SOL 3 ML VIAL.NEB. NEB ONE (06:04)
[2018-08-20 08:25] LABS: BASO % 0.8 % (0-2.0); EOS % 2.5 % (0-4.5); HEMOGLOBIN 14.1 GM/dL (11.7-16.9); LYMPH % 25.8 % (8-40); MCH 34.9 pg (25.7-33.7); MCHC 35.3 g/dl (32.0-35.9); MEAN CELL VOLUME 98.9 fl (80-96); MEAN PLT VOLUME 7.5 fl (7.5-11.1); MONO % 7.4 % (3.8-10.2); NEUT % 63.5 % (42.8-82.8); PLATELET COUNT 355 K/MM3 (134-434); RBC 4.05 M/mm3 (4.00-5.60); RDW 13.5 % (11.9-15.9); WHITE BLOOD COUNT 9.2 K/mm3 (4.0-10.0)
[2018-08-20 08:39] LABS: INR 0.96 (0.83-1.09); PROTHROMBIN TIME (PATIENT) 11.3 SEC (9.7-13.0)
[2018-08-20 09:19] LABS: ANION GAP 7 MMOL/L (8-16); BLOOD UREA NITROGEN 16 mg/dL (7-18); CALCIUM 8.5 mg/dL (8.5-10.1); CHLORIDE 106 mmol/L (98-107); CHOLESTEROL 175 mg/dL (50-200); CO2 25 mmol/L (21-32); CREATININE 0.8 mg/dL (0.55-1.3); GLUCOSE,RANDOM 108 mg/dL (74-106); HDL CHOLESTEROL 48 mg/dL (40-60); MAGNESIUM 2.4 mg/dL (1.8-2.4); PHOSPHOROUS 3.2 mg/dL (2.5-4.9); POTASSIUM 3.7 mmol/L (3.5-5.1); SODIUM 139 mmol/L (136-145); TRIGLYCERIDES 190 mg/dL (0-150)
[2018-08-20] MEDS ORDERED: amLODIPine BESYLATE 10 MG TABLET (FP) PO SCH (10:00)
[2018-08-20] MEDS ORDERED: TIOTROPIUM BROMIDE 2.5 MCG (SPIRIVA) RESPIMAT INHALER IH SCH (10:00)
--- NOTE | 2018-08-20 10:20 | CONSULT ---
- Consultation REQUESTING PROVIDER: Chano Mina CONSULT REQUEST: We have been asked to surgically evaluate this patient for h/o Carotid Stenosis PCP: Henry Mayo HPI: Called to eval 57 yo male with PMHx as noted below. Presents to [facility] ED w/ c/o hemoptysis x 1 day. States he coughed up ~ 10 spoonfuls of dark blood. While in the ED he had a CTA performed which identified COPD and negative pulmonary embolus. Patient has a h/o Carotid A. Stenosis with 90% occlusion ( states he refused CEA in the past so he was kept on Prasugrel). Has COPD and has a home inhaler that he has not been using. Admits to consuming at least 1 pint of Vodka daily (drinks every 2 hours). States he's never experienced this before. Had a Colonoscopy 01/23/18 at [facility] (states they never did an EGD). Denies Pre-syncope/syncope, CP, palpitations, lightheadedness, dizzy or weak. Denies SOB or MERCER. Denies melena or hematochezia. Denies abd pain/discomfort. Denies family hx lung CA. He is hemodynamically stable and afebrile and was set to be discharged but continued to have hemoptysis so he was admitted to the medicine service and awaiting pulmonary consult. PMHx: HTN, ETOH abuse, CAD, ? PVD, Carotid Stenosis (90% occlusion), COPD. Epistaxis PSHx: Cardiac stent Social History: Smokin ppd Alcohol: Depends; 3-6 drinks daily Drugs: no Home Meds 3 Amlodipine Besylate 10 mg PO DAILY 12/29/16 Aspirin [ASA -] 81 mg PO DAILY 12/29/16 Atorvastatin Ca [Lipitor] 40 mg PO DAILY 12/29/16 Metoprolol Succinate [Toprol XL -] 100 mg PO DAILY 12/29/16 Prasugrel Hydrochloride [Effient -] 10 mg PO DAILY 12/29/16 Allergies: PCNs ROS: CONSTITUTIONAL: Absent: fever, chills, diaphoresis, malaise, loss of appetite, weight change CARDIOVASCULAR: Absent: irregular heart rate, peripheral edema RESPIRATORY: Absent: wheezing, stridor GASTROINTESTINAL:Absent: abdominal pain, abdominal distension, vomiting, diarrhea, constipation GENITOURINARY: Absent: dysuria, frequency, urgency, hesitancy, hematuria, flank pain, genital pain MUSCULOSKELETAL: Absent: myalgia, arthralgia, joint swelling, back pain, neck pain SKIN: Absent: rash, itching, pallor HEMATOLOGIC/IMMUNOLOGIC: Absent: easy bleeding, easy bruising, lymphadenopathy NEUROLOGIC: Absent: headache, focal weakness, paresthesias, dizziness, unsteady gait, seizure, mental status changes, PSYCHIATRIC: Absent: anxiety, depression, suicidal or homicidal ideation, hallucinations. PE: GENERAL: Awake, alert, and fully oriented, in no acute distress. HEAD: Normal with no signs of trauma. EYES: PERRL, sclera anicteric, conjunctiva clear. NECK: Normal ROM, supple without lymphadenopathy, JVD, or masses. Carotid bruit on auscultation LUNGS: CTA bilat COR: RRR ABD: Soft, NT. ND. MUSCULOSKELETAL: Normal ROM at all joints. No bony deformities or tenderness. No CVA tenderness. UE: 2+ pulses, warm, well-perfused. No cyanosis. Cap refill <2 seconds. No peripheral edema. LE: 2+ pulses, warm, well-perfused. No calf tenderness. No peripheral edema. NEUROLOGICAL: Normal speech, gait not observed. PSYCH: Cooperative. Good eye contact. Appropriate mood and affect. SKIN: Warm, dry, normal turgor, no rashes or lesions noted. Last Vital Signs Temp Pulse Resp BP Pulse Ox 98.2 F 72 16 149/87 95 08/20/18 08:59 08/20/18 08:59 08/20/18 08:59 08/20/18 08:59 08/20/18 08:59 INR, PTT INR 0.96 (0.83-1.09) 08/20/18 08:00 CBC, BMP 08/20/18 08:00 08/20/18 08:00 Problem List - Problems (1) Hemoptysis Assessment/Plan: Recommend GI consult for EGD to eval for esophageal varacies given his ETOH history and current symptom of hemoptysis Continue medical management Code(s): R04.2 - HEMOPTYSIS (2) Carotid stenosis, asymptomatic Assessment/Plan: Patient still refusing elective CEA at this time. Risks benefits alternatives discussed with the patient including getting a second surgical opinion. Understands the potential dangers of not doing the surgery and understands and accepts the risks. Discussed smoking cessation. No surgical intervention planned. Cont Medical management. Above discussed with Dr. Mina and agrees Code(s): I65.29 - OCCLUSION AND STENOSIS OF UNSPECIFIED CAROTID ARTERY (3) H/O ETOH abuse Assessment/Plan: Recommend Detox protocol Code(s): Z87.898 - PERSONAL HISTORY OF OTHER SPECIFIED CONDITIONS (4) COPD (chronic obstructive pulmonary disease) Assessment/Plan: Awaiting Pulmonary Consult / Dr. Garsia Code(s): J44.9 - CHRONIC OBSTRUCTIVE PULMONARY DISEASE, UNSPECIFIED Visit type - Case Type Case Type: ED Admission - Emergency Emergency Visit: Yes ED Registration Date: 08/20/18 Care time: The patient presented to the Emergency Department on the above date and was hospitalized for further evaluation of their emergent condition. - New patient This patient is new to me today: Yes Date on this admission: 08/20/18
[2018-08-20 12:05] VITALS: BMI 22.6
--- NOTE | 2018-08-20 12:13 | CON.PULM ---
Consult Consult Specialty:: PULMONARY Referred by:: Dr Mayo Reason for Consultation:: hemoptysis - History of Present Illness Chief Complaint: hemoptysis History of Present Illness: 57yo male with h/o HTN, COPD, CAD s/p stent, carotid stenosis, long time smoker who was admitted with hemoptysis x 1 day. Describes hemoptysis as mostly mixed with phlegm, no clots about a tablespoon altogether. No prior episodes. No chest pain or palpitations. No fevers, chills or sweats. No unintentional weight loss. Appetite good. No family history of lung cancer. He started smoking as a teenager, smokes on average 1 PPD. 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 He does report occasional epistaxis but none recently and he was recently given antibiotics (azithromycin) for a URI about 2 weeks ago. - History Source History Provided By: Patient, Medical Record Limitations to Obtaining History: No Limitations - Past Medical History Cardio/Vascular: Yes: CAD, HTN ENT: Yes: Other (nosebleeds) - Alcohol/Substance Use Hx Alcohol Use: Yes (vodka/beer 5-8 drinks/day) - Smoking History Smoking history: Current every day smoker Have you smoked in the past 12 months: No Aproximately how many cigarettes per day: 20 Home Medications - Allergies Allergies/Adverse Reactions: Allergies Allergy/AdvReac Type Severity Reaction Status Date / Time Penicillins Allergy Verified 08/19/18 21:40 - Home Medications Home Medications: Ambulatory Orders Amlodipine Besylate 10 mg PO DAILY 12/29/16 Aspirin [ASA -] 81 mg PO DAILY 12/29/16 Atorvastatin Ca [Lipitor] 40 mg PO DAILY 12/29/16 Metoprolol Succinate [Toprol XL -] 100 mg PO DAILY 12/29/16 Prasugrel Hydrochloride [Effient -] 10 mg PO DAILY 12/29/16 Review of Systems - Review of Systems Constitutional: denies: Chills, Fever, Night Sweats, Weakness Eyes: denies: Recent Change in Vision HENT: reports: Epistaxis. denies: Nasal Congestion, Throat Pain Neck: denies: Stiffness, Tenderness Cardiovascular: denies: Chest Pain, Shortness of Breath Respiratory: reports: Cough, Hemoptysis, Wheezing. denies: SOB on Exertion Gastrointestinal: denies: Abdominal Pain, Nausea, Vomiting Genitourinary: denies: Dysuria, Hematuria Neurological: denies: Dizziness, Headache Endocrine: denies: Unexplained Weight Loss Physical Exam Vital Sings: Vital Signs Temperature 98.1 F 08/20/18 11:30 Pulse Rate 72 08/20/18 11:30 Respiratory Rate 18 08/20/18 11:30 Blood Pressure 144/84 08/20/18 11:30 O2 Sat by Pulse Oximetry (%) 95 08/20/18 08:59 Constitutional: Yes: Calm Eyes: Yes: Conjunctiva Clear, EOM Intact HENT: Yes: Atraumatic, Normocephalic Neck: Yes: Supple, Trachea Midline. No: Lymphadenopathy Cardiovascular: Yes: Regular Rate and Rhythm Respiratory: Yes: Rhonchi (scattered) ...Clubbing: No Gastrointestinal: Yes: Normal Bowel Sounds, Soft. No: Tenderness Edema: No Neurological: Yes: Alert, Oriented Labs: CBC, BMP 08/20/18 08:00 08/20/18 08:00 Imaging - Results Cat Scan: Report Reviewed, Image Reviewed (RML GGO) Assessment/Plan Hemoptysis Acute Bronchitis vs Epistaxis RML Ground Glass Opacity/Lung Nodule COPD CAD Carotid Stenosis HTN Smoker - would give short course of antibiotics x 5 days and steroids (prednisone 40mg daily x 5 days) - inhaled bronchodilators - monitor/quantify hemoptysis - smoking cessation - will need repeat CT chest noncontrast in 3 months to ensure resolution of ground glass opacity - if hemoptysis persists, may need inspection bronchoscopy - DVT prophylaxis Thank you for this consult Roe Moseley MD
[2018-08-20] MEDS ORDERED: ALBUTEROL SO4 0.083% IH SOL 2.5 MG/3 ML VIAL.NEB. NEB PRN (12:19)
[2018-08-20] MEDS ORDERED: AZITHROMYCIN IVPB 500 MG/250 ML BAG IVPB SCH (12:30)
[2018-08-20] MEDS ORDERED: methylPREDNISolone NA SUCC 40 MG/1 ML VIAL IVPUSH SCH (12:30)
--- NOTE | 2018-08-20 13:02 | PN ---
Physical Exam: SUBJECTIVE: Patient seen and examined at bedside. no acute events overnight- patient is still having some episodes of hemoptysis which is now mixed with greenish sputum- otherwise denies any chest pain; SOB/N/V fever or chills OBJECTIVE: Vital Signs Period Temp Pulse Resp BP Sys/[place] Pulse Ox Last 24 Hr 98.1 F-98.4 F 66-78 16-18 125-150/82-100 95-98 GENERAL: The patient is awake, alert, and fully oriented, in no acute distress. EYES: EOMI; PEERLA: no scleral icterus NECK: no JVD; no lymphadenopathy LUNGS: slight wheezing B/L and decreased breath sounds at the bases HEART: Regular rate and rhythm, S1, S2 without murmur, rub or gallop. ABDOMEN: Soft, nontender, nondistended, normoactive bowel sounds, no guarding, no rebound, no hepatosplenomegaly, no masses. EXTREMITIES: 2+ pulses, warm, well-perfused, no edema. NEUROLOGICAL: Cranial nerves II through XII grossly intact. Normal speech, gait not observed. PSYCH: Normal mood, normal affect. SKIN: Warm, dry, normal turgor, no rashes or lesions noted Laboratory Results - last 24 hr 08/20/18 08/20/18 08/20/18 00:22 00:22 08:00 WBC 12.6 H 9.2 RBC 4.29 4.05 Hgb 15.2 14.1 Hct 42.7 D 40.0 MCV 99.5 H 98.9 H MCH 35.4 H 34.9 H MCHC 35.6 35.3 RDW 13.3 D 13.5 Plt Count 407 D 355 MPV 7.5 7.5 Absolute Neuts (auto) 8.6 H 5.9 Neutrophils % 68.3 63.5 Lymphocytes % 22.6 D 25.8 Monocytes % 6.7 7.4 Eosinophils % 1.6 2.5 Basophils % 0.8 0.8 Nucleated RBC % 0 0 PT with INR INR PTT (Actin FS) Sodium 139 Potassium 5.0 Chloride 106 Carbon Dioxide 28 Anion Gap 5 L BUN 17 Creatinine 1.0 Creat Clearance w eGFR > 60 Random Glucose 102 Calcium 8.9 Phosphorus Magnesium Total Bilirubin 0.4 AST 31 ALT 34 Alkaline Phosphatase 109 Total Protein 7.8 Albumin 4.2 Triglycerides Cholesterol Total LDL Cholesterol HDL Cholesterol Vitamin B12 Serum Folate 08/20/18 08/20/18 08:00 08:00 WBC RBC Hgb Hct MCV MCH MCHC RDW Plt Count MPV Absolute Neuts (auto) Neutrophils % Lymphocytes % Monocytes % Eosinophils % Basophils % Nucleated RBC % PT with INR 11.30 INR 0.96 PTT (Actin FS) 30.0 Sodium 139 Potassium 3.7 Chloride 106 Carbon Dioxide 25 Anion Gap 7 L BUN 16 Creatinine 0.8 Creat Clearance w eGFR > 60 Random Glucose 108 H Calcium 8.5 Phosphorus 3.2 Magnesium 2.4 Total Bilirubin AST ALT Alkaline Phosphatase Total Protein Albumin Triglycerides 190 H Cholesterol 175 Total LDL Cholesterol 106 H HDL Cholesterol 48 Vitamin B12 736 Serum Folate 16 Active Medications Generic Name Dose Route Start Last Admin Trade Name Freq PRN Reason Stop Dose Admin Albuterol Sulfate 1 amp 08/20/18 12:19 Ventolin 0.083% Nebulizer Soln - NEB Q4H PRN SHORT OF BREATH/WHEEZING Amlodipine Besylate 10 mg 08/20/18 10:00 08/20/18 12:25 Norvasc - PO 10 mg DAILY SINA Administration Atorvastatin Calcium 40 mg 08/20/18 22:00 Lipitor - PO HS SINA Ezetimibe 10 mg 08/20/18 22:00 Zetia - PO HS SINA Azithromycin 500 mg in 250 mls @ 250 mls/hr 08/20/18 12:30 Zithromax 500mg Ivpb (Pre-Docked) IVPB 08/25/18 12:29 DAILY SINA Methylprednisolone Sodium Succinate 40 mg 08/20/18 12:30 Solu-Medrol - IVPUSH DAILY SINA Metoprolol Succinate 100 mg 08/20/18 10:00 08/20/18 12:25 Toprol Xl - PO 100 mg DAILY SINA Administration Tiotropium Banco 2 puff 08/20/18 10:00 Spiriva Respimat IH DAILY SINA ASSESSMENT/PLAN: Patient is a 57 year old male with past medical history of HTN, CAD s/p stent ( 2016), carotid artery stenosis (on prasugrel), suspected PAD, and COPD, presented with multiple episodes of hemoptysis for 1 day. #Hemoptysis: unclear etiology -May be 2/2 bronchitis vs PNA vs TB vs Lung CA -Initial chest CT showed no PE, scattered centrilobular bullous changes; follow up final read -Check coags -Dr Moseley consulted; put patient on azithromycin and added 40mg prednisone daily -Will hold Prasugrel for now. -As per patient, he was initially put on Prasugrel for the cardiac stent in 2016 , and was continued on it because he was noted to have 90% carotid artery stenosis (unsure which side) and refused to undergo surgery. #Carotid Artery stenosis -hold home AC -Carotid doppler -Vascular (Dr. Mina) consulted -need to get records from outpatient cardio/vascular #CAD -Continue home Metoprolol 100mg daily -Atorvastatin 40mg PO HS; added zetia given patients elevated LDL #Suspected PAD -LE arterial dopplers ordered. #Alcohol abuse -CIWA 0 -CIWA protocol with librium #COPD: not in acute exacerbation -On Spiriva and albuterol, but patient reported has not used any for years -Albuterol PRN for SOB #FEN -Not on any standing fluids -electrolytes wnl, routine bmp monitoring -NPO for now #Prophylaxis -Heparin 5000 units sq tid Problem List - Problems (1) COPD (chronic obstructive pulmonary disease) Code(s): J44.9 - CHRONIC OBSTRUCTIVE PULMONARY DISEASE, UNSPECIFIED (2) Carotid stenosis, asymptomatic Code(s): I65.29 - OCCLUSION AND STENOSIS OF UNSPECIFIED CAROTID ARTERY (3) Hemoptysis Code(s): R04.2 - HEMOPTYSIS Visit type - Emergency Visit Emergency Visit: Yes ED Registration Date: 08/20/18 Care time: The patient presented to the Emergency Department on the above date and was hospitalized for further evaluation of their emergent condition. - New Patient This patient is new to me today: Yes Date on this admission: 08/20/18 - Critical Care Critical Care patient: No
[2018-08-20] MEDS ORDERED: chlordiazePOXIDE HCL 25 MG CAPSULE PO PRN (14:39)
--- NOTE | 2018-08-20 14:52 | PN ---
Teaching Attending Note Name of Resident: Stephanie Souza ATTENDING PHYSICIAN STATEMENT I saw and evaluated the patient. I reviewed the resident's note and discussed the case with the resident. I agree with the resident's findings and plan as documented. SUBJECTIVE: No fever or chills. reports being in contact with his father in and out NH. cont to smoke and cont to drink alcohol. No feve or chills. nO contact with TB, no homelessness, or imprisonment . received a 5 day course of azithro as out pt cough with green sputum production . he can differentiate between vomiting and coughing and he denies any hematemesis OBJECTIVE: NAd. CV; RRR, No MRG. Lungs: CTAB Ext : no edema Abd: soft, NT, Nd < NL BS No LAP in neck, axilae, or groins. No skin lesions or rash ASSESSMENT AND PLAN: 57 y/o man with h/o Carotid artery stenosis, refused CEA, CAD s/p PCI, PVD, and ethanol/Nicotine abuse who presented with hemoptysis. 1- Hemoptysis: per history he does not have hematemesis. I witnessed him coughing with small amount of red blood covering his sputum. case d/w Dr. Moseley, likely due to bronchitis. of course given his smoking hx, intrabroncheal malignancy can't be r/o. - Azithro x 5 days total - steroids x 5 days , can switch to prednisone - repeat CT of chest in 3 months. If hemoptysis does not resolve, then need bronchoscopy - No suspicion for TB - f/u with pulm - pulm have no CI to resume antiplatelet 2- H/o carotid artery stenosis. he does nto remember the side. He refused and continue to refuse CEA. - ZACARIAS was done. will follow read - resume anti platelet effient and asa - f/u as out pt 3- H/o PAD: US done. will follow read. has no pain, or skin changes. - f/u as out pt - optimize medical mgt 4- HLP: LDl above goal givenhis PAd, and carotid artery stenosis and CAD. - add zetia - repeat level in 8 weeks 5- ETOH abuse: no signs of withdrawal 6- HTN: cont norvasc and BB 7- dispo : will dc home today
[2018-08-20 15:43] VITALS: TEMP 98
--- NOTE | 2018-08-20 16:28 | EKG ---
Test Reason : Blood Pressure : / mmHG Vent. Rate : 068 BPM Atrial Rate : 068 BPM P-R Int : 134 ms QRS Dur : 086 ms QT Int : 404 ms P-R-T Axes : 051 056 055 degrees QTc Int : 429 ms NORMAL SINUS RHYTHM NORMAL ECG WHEN COMPARED WITH ECG OF 29-DEC-2016 03:42, PREMATURE VENTRICULAR COMPLEXES ARE NO LONGER PRESENT Confirmed by Rocky Fernandez ([id number]) on 08/20/2018 4:28:14 PM Referred By: Confirmed By:Rocky Fernandez
--- NOTE | 2018-08-20 17:23 | DS ---
Physical Exam: SUBJECTIVE: Patient seen and examined at bedside- no acute events overnight; patient is still having complaints o f hemoptysis; denies CP/SOB/N/V fevers or chills OBJECTIVE: Vital Signs Period Temp Pulse Resp BP Sys/[place] Pulse Ox Last 24 Hr 98.0 F-98.4 F 66-78 16-18 125-150/82-100 95-98 PHYSICAL EXAM GENERAL: The patient is awake, alert, and fully oriented, in no acute distress.. EYES: EOMI; PEERLA; no sceral icterus. NECK: no JVD; no lymphadenopathy. LUNGS:slight wheezing B/L HEART: Regular rate and rhythm, S1, S2 without murmur, rub or gallop. ABDOMEN: Soft, nontender, nondistended, normoactive bowel sounds, no guarding, no rebound, no hepatosplenomegaly, no masses. EXTREMITIES: 2+ pulses, warm, well-perfused, no edema. NEUROLOGICAL: Cranial nerves II through XII grossly intact. Normal speech, gait not observed. PSYCH: Normal mood, normal affect. SKIN: Warm, dry, normal turgor, no rashes or lesions noted. LABS Laboratory Results - last 24 hr 08/20/18 08/20/18 08/20/18 00:22 00:22 08:00 WBC 12.6 H 9.2 RBC 4.29 4.05 Hgb 15.2 14.1 Hct 42.7 D 40.0 MCV 99.5 H 98.9 H MCH 35.4 H 34.9 H MCHC 35.6 35.3 RDW 13.3 D 13.5 Plt Count 407 D 355 MPV 7.5 7.5 Absolute Neuts (auto) 8.6 H 5.9 Neutrophils % 68.3 63.5 Lymphocytes % 22.6 D 25.8 Monocytes % 6.7 7.4 Eosinophils % 1.6 2.5 Basophils % 0.8 0.8 Nucleated RBC % 0 0 PT with INR INR PTT (Actin FS) Sodium 139 Potassium 5.0 Chloride 106 Carbon Dioxide 28 Anion Gap 5 L BUN 17 Creatinine 1.0 Creat Clearance w eGFR > 60 Random Glucose 102 Calcium 8.9 Phosphorus Magnesium Total Bilirubin 0.4 AST 31 ALT 34 Alkaline Phosphatase 109 Total Protein 7.8 Albumin 4.2 Triglycerides Cholesterol Total LDL Cholesterol HDL Cholesterol Vitamin B12 Serum Folate 08/20/18 08/20/18 08:00 08:00 WBC RBC Hgb Hct MCV MCH MCHC RDW Plt Count MPV Absolute Neuts (auto) Neutrophils % Lymphocytes % Monocytes % Eosinophils % Basophils % Nucleated RBC % PT with INR 11.30 INR 0.96 PTT (Actin FS) 30.0 Sodium 139 Potassium 3.7 Chloride 106 Carbon Dioxide 25 Anion Gap 7 L BUN 16 Creatinine 0.8 Creat Clearance w eGFR > 60 Random Glucose 108 H Calcium 8.5 Phosphorus 3.2 Magnesium 2.4 Total Bilirubin AST ALT Alkaline Phosphatase Total Protein Albumin Triglycerides 190 H Cholesterol 175 Total LDL Cholesterol 106 H HDL Cholesterol 48 Vitamin B12 736 Serum Folate 16 imaging: chest CTA: right ground glass opacities present chest XRAY: no acute pathology Lower extremity arterial dopplers: left posterior tibialis artery showing decreased flow carotid artery dopplers: left cervical internal carotid artery showwing significant stenosis HOSPITAL COURSE: Date of Admission:08/20/18 57 y/o male with PMH of HTN, CAd (s/p stent), COPD, carotid artery stenosis presented to the ED with one day history of multiple episodes of hemoptysis. patient had been having flu-like symptoms took azithromycin. of note, patient had a 40 pack eyar history and extensive alcohol history. no risk factors for TB - imaging done above. patient came in vital signs stable, slighty elevated WBC count of 12 but repeat this AM was 9.0. patient was seen by pulmonology who recommended starting azithromycin 500 for 5 days in addition to 40 prednisone daily for 5 days. patient ws also seen by vascular; he is refusing elective CEA. patient was cleared to medically leave with strict follow up to see his PCP , amortization schedule clerk and with a vascular referral. in addition, started on he azithromycin, prednisone. we also started him on zetia for cholesterol in addition to his atorvastatin,. the amortization schedule clerk gave the permission to continue with patients prasurgel. Date of Discharge: 08/20/18 Minutes to complete discharge: 39 Discharge Summary Reason For Visit: HEMOPTYSIS ACUTE EXACERBATION OF COPD Current Active Problems Hemoptysis (Acute) Hyperlipidemia (Acute) COPD (chronic obstructive pulmonary disease) (Chronic) Carotid stenosis, asymptomatic (Chronic) H/O ETOH abuse (Chronic) Hyperlipidemia (Chronic) Condition: Stable - Instructions Diet, Activity, Other Instructions: You came in to the emergency room with multiple episodes of coughing up blood. We did a CT scan of your chest which did not show any evidence of any tumors in your lungs, we also did an ultrasound of your legs and carotid arteries. Please resume all of your home medications, including aspirin and prasurgrel in addition: -please take the antibiotic azithromycin 250mg for 4 days starting tomorrow -chalino take prednisone 40mg daily for 4 days starting tomorrow -we added another medication, zetia 10mg daily for your cholesterol Please repeat the CT scan of your chest in 3 months. follow with pulmonary Dr. Moseley for that . You might need bronchoscopy if you continue to have hemoptysis Please repeat your lipid test in 8 weeks Yo uneed further evaluation of Lower extremity vessels for further management plan Please follow up with your primary care physician within one week Please follow up with the amortization schedule clerk,Dr Moseley within one week follow with vascular in 2 weeks ( Dr. Mina) , for further evaluation of your carotid stenosis and possible peripheral vascular disease *if you begin to have fevers, chills, worsening blood with coughing please return to the emergency room immediately abstain from alcohol and nicotine Referrals: David Altamirano MD [Primary Care Provider] - 1 Week Chano Mina MD [Staff Physician] - 2 Weeks Roe Moseley MD, MD [Staff Physician] - 1 Week Disposition: HOME - Home Medications Comprehensive Discharge Medication List: Ambulatory Orders Amlodipine Besylate 10 mg PO DAILY 12/29/16 Aspirin [ASA -] 81 mg PO DAILY 12/29/16 Atorvastatin Ca [Lipitor] 40 mg PO DAILY 12/29/16 Metoprolol Succinate [Toprol XL -] 100 mg PO DAILY 12/29/16 Prasugrel Hydrochloride [Effient -] 10 mg PO DAILY 12/29/16 Azithromycin 250 mg PO DAILY 4 Days #4 tablet 08/20/18 Ezetimibe [Zetia -] 10 mg PO HS #60 tablet 08/20/18 Prednisone [Deltasone] 40 mg PO DAILY 4 Days #4 tablet 08/20/18 Problem List - Problems (1) COPD (chronic obstructive pulmonary disease) Code(s): J44.9 - CHRONIC OBSTRUCTIVE PULMONARY DISEASE, UNSPECIFIED (2) Carotid stenosis, asymptomatic Code(s): I65.29 - OCCLUSION AND STENOSIS OF UNSPECIFIED CAROTID ARTERY (3) Hemoptysis Code(s): R04.2 - HEMOPTYSIS This patient is new to me today: Yes Date on this admission: 08/20/18 Emergency Visit: Yes ED Registration Date: 08/20/18 Care time: The patient presented to the Emergency Department on the above date and was hospitalized for further evaluation of their emergent condition. Critical Care patient: No - Discharge Referral Referred to [facility] Med [facility] Yes Physician Referral: Chano Mina DO ([facility])
[2018-08-20 18:46] VITALS: BP 116/80; PULSE 60
[2018-08-20] MEDS ORDERED: ATORVASTATIN CA 40 MG TABLET (FP) PO SCH (22:00)
[2018-08-20] MEDS ORDERED: EZETIMIBE 10 MG TABLET (FP) PO SCH (22:00)
== END 2018-08-20 19:04 | disposition home or self-care (01) ==
LOC: JER 21:29 → JERBED 08-20 04:23 → J5S 08-20 10:35
PROVIDERS: ADMIT Internal Medicine; ATTEND Internal Medicine
PROC: 3E03329 Introduction of Other Anti-infective into Peripheral Vein, Percutaneous Approach (ICD-10-PCS; principal; 2018-08-20)
PROC: 3E0333Z Introduction of Anti-inflammatory into Peripheral Vein, Percutaneous Approach (ICD-10-PCS; 2018-08-20)
PROC: 3E0F7GC Introduction of Other Therapeutic Substance into Respiratory Tract, Via Natural or Artificial Opening (ICD-10-PCS; 2018-08-20)
DX: R04.2 Hemoptysis (principal); I10 Essential (primary) hypertension; E78.5 Hyperlipidemia, unspecified; F17.210 Nicotine dependence, cigarettes, uncomplicated; I25.10 Atherosclerotic heart disease of native coronary artery without angina pectoris; I65.22 Occlusion and stenosis of left carotid artery; J44.9 Chronic obstructive pulmonary disease, unspecified; F10.10 Alcohol abuse, uncomplicated; Z95.5 Presence of coronary angioplasty implant and graft; Z79.82 Long term (current) use of aspirin; Z88.0 Allergy status to penicillin
CPT/HCPCS: 36415; 71046-TC-FY; 71275-TC; 80048; 80053; 80061; 82607; 82746; 83721; 83735; 84100; 85025; 85610; 85730; 93005; 93010; 93880-TC; 93925-TC; 94640; 96365; 96375; 99284-25; G0378

== ENCOUNTER 2018-12-26 16:27 | Inpatient (IN) | payer OTHER ==
--- NOTE | 2018-12-26 16:40 | PDOC ---
Rapid Medical Evaluation Chief Complaint: Weakness Time Seen by Provider: 12/26/18 16:30 Medical Evaluation: Allergies Allergy/AdvReac Type Severity Reaction Status Date / Time Penicillins Allergy Verified 08/19/18 21:40 12/26/18 16:40 I have performed a brief in-person evaluation of this patient. The patient presents with a chief complaint of: right arm weaknee/ tingling with some mental staus changes/ concerns about a stroke. Onset ~ 2 hours ago. Pertinent physical exam findings: Alert/ able to recount events. I have ordered the following: taken to ER for immediate evaluation to R/O Chalino Molina RN notified. The patient will proceed to the ED for further evaluation. Discharge Disposition - Diagnosis Weakness - Referrals - Patient Instructions - Post Discharge Activity
--- NOTE | 2018-12-26 17:06 | PDOC ---
History of Present Illness - General Chief Complaint: Weakness Stated Complaint: LIGHTHEADED Time Seen by Provider: 12/26/18 16:30 - History of Present Illness Initial Comments: 12/26/18 17:06 Mr. Valerio is a 58 yo male w/ pmh of HTN, CAD s/p stent, COPD, carotid artery stenosis (most recent neck CTA 12/23 revealed 83% stenosis of L internal carotid artery; vascular surgeon Dr. Chano Mina), and alcohol abuse (patient has been drinking 1 pint / day since last admission in August of this year, last drink at 3pm today) who presents for evaluation of approximately 30s-1 minute history of self reported slurred speech with "Left lip heaviness" and R wrist tingling at approximately 2pm today. Patient reports symptoms went away on their own and he is feeling like his normal self at this time. Also complaining of a cough he reports is typical of his "smoker's cough." The patient denies chest pain, shortness of breath, headache and dizziness. Denies fever, chills, nausea, vomit, diarrhea and constipation. Denies dysuria, frequency, urgency and hematuria. tPA Exclusion checklist 3-4.5h - Time Elapsed Date last known well: 12/26/18 Time last known well: 14:00 Elaspsed time: Day(s) and 5 Hour(s) and 8 Minutes - Thrombolytic Therapy Candidate Is patient eligible for thrombolytic therapy: No - Exclusion Criteria 3-4.5 hr SBP greater than 185 or DBP greater than 110mmHg despite tx: No Recent IC/spinal surgery,head trauma or stroke<3mos.: No Hx IC hemorrhage, IC neoplasm, AV malformation or aneurysm: No Active internal bleeding: No Blding diathesis(low plt ct, inc PTT,INR>1.7 or use of NOAC): No Symptoms suggest subarachnoid hemorrhage: No CT demonstrates multilobar infarct(>1/3 cerebral hemiphere): No Arterial puncture at noncompressible site in previous 7 days: No Blood glucose concentration less than 50mg/dL (2.7mmol/L): No - Relative Exclusion Criteria 3-4.5 hr Life expectancy <1 yr or severe co-morbid illness: No : No Patient/family refused: No Rapid improvement: Yes Stroke severity too mild: Yes Recent acute NV (w/in previous 3 months): No Seizure at onset with postictal residual neuro impairments: No Major surgery or serious trauma w/in previous 14 days: No Recent GI or hemorrhage (w/in previous 21 days): No - Add'l Relative Exclusion 3-4.5 hr Age > 80: No Hx of both diabetes AND prior ischemic stroke: No Taking an oral anticoagulant regardless of INR: No NIHSS >25: No - Ineligibility reason(s) Reasons No tPA given: See reason(s) noted above NIH Stroke Scale - Last Known Well Date/Time & Onset Date Last Known Well: 12/26/18 Time Last Known Well: 14:00 - Initial Evaluation Level of consciousness: Alert Ask patient the month and their age: Answers both correctly Ask patient to open & close eyes; make fist and let go: Obeys both correctly Best gaze (horizontal eye movement): Normal Visual field testing: No visual field loss Facial paresis (Show teeth/raise eyebrows/close eyes tight): Normal symmetrical movement Motor Function: Left Arm: Normal Motor Function: Right Arm: Normal (extends arm 90 (or 45) degrees for 10 seconds without drift Motor Function: Left Leg: Normal (extends leg 30 degrees for 5 seconds without drift) Motor Function: Right Leg: Normal (extends leg 30 degrees for 5 seconds without drift) Limb Ataxia: No ataxia Sensory(Use pinprick test arms,legs,trunk,face/side to side): Normal Best language (Describe picture, name items, read sentences): No Aphasia Dysarthria (read several words): Normal articulation Extinction and Inattention: No abnormality - Total Score NIH Stroke Scale Score: 0 Past History - Past Medical History Allergies/Adverse Reactions: Allergies Allergy/AdvReac Type Severity Reaction Status Date / Time Penicillins Allergy Verified 12/26/18 16:34 Home Medications: Ambulatory Orders Amlodipine Besylate 10 mg PO DAILY 12/29/16 Aspirin [ASA -] 81 mg PO DAILY 12/29/16 Atorvastatin Ca [Lipitor] 80 mg PO DAILY 12/29/16 Metoprolol Succinate [Toprol XL -] 100 mg PO DAILY 12/29/16 Ezetimibe [Zetia -] 10 mg PO HS #60 tablet 08/20/18 Anemia: No Asthma: No Cancer: No Cardiac Disorders: Yes (CARDIAC STENT) CVA: No COPD: No CHF: No Dementia: No Diabetes: No GI Disorders: No Disorders: No HTN: Yes Hypercholesterolemia: Yes Liver Disease: No Seizures: No Thyroid Disease: No - Surgical History Abdominal Surgery: No Appendectomy: No Cardiac Surgery: Yes (1 cardiac stent) Cholecystectomy: No Lung Surgery: No Neurologic Surgery: No Orthopedic Surgery: No - Suicide/Smoking/Psychosocial Hx Smoking History: Never smoked Have you smoked in the past 12 months: No Number of Cigarettes Smoked Daily: 20 Information on smoking cessation initiated: No 'Breaking Loose' booklet given: 12/29/16 Hx Alcohol Use: No Drug/Substance Use Hx: No Substance Use Type: None Hx Substance Use Treatment: No Review of Systems - Review of Systems Comments:: 12/26/18 17:06 GENERAL/CONSTITUTIONAL: No fever or chills. No weakness. HEAD, EYES, EARS, NOSE AND THROAT: No change in vision. No ear pain or discharge. No sore throat. CARDIOVASCULAR: No chest pain or shortness of breath RESPIRATORY: No cough, wheezing, or hemoptysis. GASTROINTESTINAL: No nausea, vomiting, diarrhea or constipation. GENITOURINARY: No dysuria, frequency, or change in urination. MUSCULOSKELETAL: No joint or muscle swelling or pain. No neck or back pain. SKIN: No rash NEUROLOGIC: +Speech changes with wrist tingling as described. No headache, vertigo, or loss of consciousness. ENDOCRINE: No increased thirst. No abnormal weight change HEMATOLOGIC/LYMPHATIC: No anemia, easy bleeding, or history of blood clots. ALLERGIC/IMMUNOLOGIC: No hives or skin allergy. *Physical Exam - Vital Signs Last Vital Signs Temp Pulse Resp BP Pulse Ox 98.1 F 82 18 164/98 98 12/26/18 16:30 12/26/18 16:30 12/26/18 16:30 12/26/18 16:30 12/26/18 16:30 - Physical Exam Comments: 12/26/18 17:07 GENERAL: Awake, alert, and fully oriented, in no acute distress HEAD: No signs of trauma, normocephalic, atraumatic EYES: PERRLA, EOMI, sclera anicteric, conjunctiva clear ENT: Auricles normal inspection, hearing grossly normal, nares patent, oropharynx clear without exudates. Moist mucosa NECK: Normal ROM, supple, no lymphadenopathy, JVD, or masses LUNGS: No distress, speaks full sentences, clear to auscultation bilaterally HEART: Regular rate and rhythm, normal S1 and S2, no murmurs, rubs or gallops, peripheral pulses normal and equal bilaterally. ABDOMEN: Soft, nontender, normoactive bowel sounds. No guarding, no rebound. No masses EXTREMITIES: Normal inspection, Normal range of motion, no edema. No clubbing or cyanosis. NEUROLOGICAL: Cranial nerves II through XII grossly intact. Normal speech, normal gait, no focal sensorimotor deficits SKIN: Warm, Dry, normal turgor, no rashes or lesions noted. ED Treatment Course - LABORATORY CBC & Chemistry Diagram: 12/26/18 17:00 12/26/18 17:00 Medical Decision Making - Medical Decision Making 12/26/18 19:08 Mr. Valerio is a 58 yo male w/ pmh as described who presents for evaluation of symptoms concerning for stroke vs. TIA Patient evaluated with stroke workup and will likely be admitted for further evaluation. Patient stroke scale negative upon arrival. Currently pending CT Head. Patient signed out to Dr. Basilio for further evaluation. *DC/Admit/Observation/Transfer Diagnosis at time of Disposition: Weakness - Referrals Referrals: Arlet Hernandez MD [Primary Care Provider] - - Patient Instructions - Post Discharge Activity
[2018-12-26 17:31] LABS: BASO % 1.1 % (0-2.0); EOS % 0.6 % (0-4.5); HEMATOCRIT 43.9 % (35.4-49); MCH 33.9 pg (25.7-33.7); MCHC 34.1 g/dl (32.0-35.9); MEAN CELL VOLUME 99.4 fl (80-96); MONO % 6.5 % (3.8-10.2); NEUT % 76.8 % (42.8-82.8); PLATELET COUNT 358 K/MM3 (134-434); RBC 4.41 M/mm3 (4.00-5.60); RDW 13.4 % (11.9-15.9); WHITE BLOOD COUNT 9.9 K/mm3 (4.0-10.0)
[2018-12-26 17:41] LABS: ALBUMIN 4.3 g/dl (3.4-5.0); ALK PHOS 78 U/L (45-117); ANION GAP 9 MMOL/L (8-16); BILIRUBIN,TOTAL 0.6 mg/dL (0.2-1); BLOOD UREA NITROGEN 11.5 mg/dL (7-18); CHLORIDE 109 mmol/L (98-107); CO2 24 mmol/L (21-32); GLUCOSE,RANDOM 97 mg/dL (74-106); POTASSIUM 4.3 mmol/L (3.5-5.1); SGOT/AST 17 U/L (15-37); SGPT/ALT 21 U/L (13-61); SODIUM 142 mmol/L (136-145); TOT PROT 7.1 g/dl (6.4-8.2)
[2018-12-26 17:42] LABS: INR 0.97 (0.83-1.09); PROTHROMBIN TIME (PATIENT) 11.4 SEC (9.7-13.0)
[2018-12-26] MEDS ORDERED: THIAMINE HCL 200 MG/2 ML VIAL IVPB ONE (17:42)
[2018-12-26] MEDS ORDERED: FOLIC ACID 1 MG TABLET (FP) PO ONE (17:42)
[2018-12-26] MEDS ORDERED: MULTIVITAMINS (DAILY MVI) TABLET (FP) PO ONE (17:44)
[2018-12-26] MEDS ORDERED: THIAMINE HCL 200 MG/2 ML VIAL ONE (17:47)
[2018-12-26] MEDS ORDERED: FOLIC ACID 1 MG TABLET (FP) ONE (17:47)
[2018-12-26 18:12] LABS: CHOLESTEROL 172 mg/dL (50-200); HDL CHOLESTEROL 52 mg/dL (40-60); TRIGLYCERIDES 127 mg/dL (0-150)
--- NOTE | 2018-12-26 19:20 | PDOC ---
*Physical Exam - Vital Signs Last Vital Signs Temp Pulse Resp BP Pulse Ox 98.1 F 82 18 164/98 98 12/26/18 16:30 12/26/18 16:30 12/26/18 16:30 12/26/18 16:30 12/26/18 16:30 ED Treatment Course - LABORATORY CBC & Chemistry Diagram: 12/26/18 17:00 12/26/18 17:00 - ADDITIONAL ORDERS Additional order review: Laboratory Results 12/26/18 12/26/18 17:00 17:00 PT with INR 11.40 INR 0.97 Sodium 142 Potassium 4.3 Chloride 109 H Carbon Dioxide 24 Anion Gap 9 BUN 11.5 Creatinine 1.0 Est GFR (CKD-EPI)AfAm 94.39 Est GFR (CKD-EPI)NonAf 81.44 Random Glucose 97 Calcium 9.0 Total Bilirubin 0.6 AST 17 ALT 21 Alkaline Phosphatase 78 Creatine Kinase 128 Troponin I < 0.02 Total Protein 7.1 Albumin 4.3 Triglycerides 127 Cholesterol 172 Total LDL Cholesterol 110 H HDL Cholesterol 52 12/26/18 17:00 RBC 4.41 MCV 99.4 H MCHC 34.1 RDW 13.4 MPV 8.0 Neutrophils % 76.8 D Lymphocytes % 15.0 D Monocytes % 6.5 Eosinophils % 0.6 Basophils % 1.1 - Medications Given in the ED: ED Medications Discontinued Medications Generic Name Dose Route Start Last Admin Trade Name Paulq PRN Reason Stop Dose Admin Folic Acid 1 mg 12/26/18 17:42 12/26/18 17:58 Folic Acid - PO 12/26/18 17:43 1 mg ONCE ONE Administration Multivitamins/Minerals/Vitamin C 1 tab 12/26/18 17:44 12/26/18 17:58 Tab-A-Vit - PO 12/26/18 17:45 Not Given ONCE ONE Thiamine HCl 200 mg 12/26/18 17:42 12/26/18 17:58 Vitamin B1 Injection - IVPB 12/26/18 17:43 200 mg ONCE ONE Administration Medical Decision Making - Medical Decision Making 12/26/18 19:20 Received sign out from resident Dr. Torres. In short, pt is a 58 y/o male presenting for approximately 30s-1 minute history of self reported slurred speech with "Left lip heaviness" and R wrist tingling at approximately 2pm today. Pending head CT. Head CT unremarkable for acute pathology. Will admit the pt for suspected TIA in setting of known carotid stenosis. 21:20 Microblog sent to [facility] for admission. Awaiting call back. ED Attending discussed case with both Drs. Chun (neurologist) and Leopoldo ( Vascular Surgeon). Both will evaluate the pt in the morning. 23:55 Telephone consultation with resident Dr. Barger. Verbally appraised of the pts HPI, ED course, and current plan of management. Will admit pt to stroke unit for attending Dr. Pearl. *DC/Admit/Observation/Transfer Diagnosis at time of Disposition: Weakness, TIA (transient ischemic attack) - Discharge Dispostion Condition at time of disposition: Stable Decision to Admit order: Yes - Referrals - Patient Instructions - Post Discharge Activity
--- NOTE | 2018-12-26 19:52 | PDOC ---
Documentation entered by Ann-Marie Pope SCRIBE, acting as scribe for Cheryl Desozua DO. Cheryl Desouza DO: This documentation has been prepared by the luisanaibe, Ann-Marie Pope SCRIBE, under my direction and personally reviewed by me in its entirety. I confirm that the documentation accurately reflects all work, treatment, procedures, and medical decision making performed by me. Attending Attestation - Resident Resident Name: MelissaMonoFrancis - ED Attending Attestation I have performed the following: I have examined & evaluated the patient, The case was reviewed & discussed with the resident, I agree w/resident's findings & plan, Exceptions are as noted - HPI HPI: 12/26/18 20:03 The patient is a 58-year-old male with a past medical history significant for HTN, CAD s/p stents, COPD, carotid artery stenosis (recent CTA significant for 83% stenosis of L. 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 The patient reports he had a 30 sec - 1 min episode of self-reported slurred speech and facial droop around 2:00 pm today. The patient reports the symptom self resolved, and current denies any symptoms. The patient reports associated symptom of weakness for the past few days. Nithin fever or chills. - Physicial Exam PE: 12/26/18 18:33 Constitutional: +intoxicated. Awake, alert, oriented. No acute distress. Head: Normocephalic. Atraumatic Eyes: PERRL. EOMI. Conjunctivae are not pale. ENT: Mucous membranes are moist and intact. Posterior pharynx without exudates or erythema. Uvula midline. Neck: Supple. Full ROM. No lymphadenopathy. Cardiovascular: Regular rate. Regular rhythm. S1, S2 regular. Distal pulses are 2+ and symmetric. Pulmonary/Chest: No evidence of respiratory distress. Clear to auscultation bilaterally No wheezing, rales or rhonchi. Abdominal: Soft and nondistended. There is no tenderness. No rebound, guarding or rigidity. No organomegaly. No palpable masses. Good bowel sounds. Back: No CVA tenderness. Musculoskeletal: No edema. No cyanosis. No clubbing. Full range of motion in all extremities. No calf tenderness. Radial/pedal pulses are intact and 2+ bilaterally Skin: Skin is warm and dry. No petechiae. No purpura. Neurological: Alert and oriented to person, place, and time. Cranial nerves II -XII are grossly intact. Normal speech. Strength is grossly symmetric. No sensory deficits. Psychiatric: Good eye contact. Normal interaction, affect and behavior. - Medical Decision Making 12/26/18 19:13 I, Dr. Cheryl Desouza, DO, attest that this document has been prepared under my direction and personally reviewed by me in its entirety. I further attest, that it accurately reflects all work, treatment, procedures and medical decision -making performed by me. 12/26/18 19:13 a/p: 58yo male with 30-60 second episode of self noticed slurred speech and R arm weakness and tremors -pt states he felt his L face drooped as well -symptoms resolved spontaneously after a minute and he has not had repeat symptoms since -pt states symptoms started at 2pm and then at 3pm he drank etoh -pt states he drinks 8-10 etoh drinks per day -pt states he follows with Dr. Mina who did carotid ultraosund that showed 80% stenosis on the L this week -pt currently neuro intact -suspect tia -no tpa given rapid resolution of symptoms -will obtain head ct, ekg, cxr, labs -pt will need obs for MRI brain and neuro eval and furhter eval of TIA 12/26/18 20:00 labs reviewed and stable ct pending 12/26/18 20:[address] official read pending 12/26/18 21:45 no acute findings on head ct microblog sent to [facility] for tia eval 12/26/18 22:[address] Chun - recommends MRI call placed to Dr. Mina pt updated on all results and the plan agrees to stay for TIA workup 12/26/18 23:[address] Mina who will see the patient in consult resident discussed the case with [facility] who accepts pt to service Heart Score/ECG Review - ECG Intrepretation Comment:: 12/26/18 19:51 sinus anthony at 55, nl axis, nl interval, no acute st/t wave findings
[2018-12-26] MEDS ORDERED: ASPIRIN 81 MG CHEWABLE TABLETS PO ONE (22:47)
[2018-12-26] MEDS ORDERED: ASPIRIN 81 MG CHEWABLE TABLETS ONE (23:14)
--- NOTE | 2018-12-26 23:52 | PN ---
Teaching Attending Note Name of Resident: Denita Lugo ATTENDING PHYSICIAN STATEMENT I saw and evaluated the patient. I reviewed the resident's note and discussed the case with the resident. I agree with the resident's findings and plan as documented. SUBJECTIVE: Patient is a 58 year old man with a past PMH of Tobacco use, Penicillin allergy , HTN, CAD s/p stents, COPD, carotid artery stenosis (recent CTA significant for 83% stenosis of left internal carotid artery) and Alcohol abuse (drinks 8- 10 vodka or beer daily, last drink CARPET JACK) presents to the ER after an episode of slurred speech and facial droop. The patient reports he had a 30 sec - 1 min episode of self-reported slurred speech and facial droop around 2:00 pm today. The patient reports the symptom self resolved, and current denies any symptoms. He had a similar bout about 4 years ago. The patient reports associated symptom of weakness for the past few days. He has a family history of MS and ALS. The patient denies chest pain, shortness of breath, headache and dizziness. Denies fever, chills, nausea, vomit, diarrhea and constipation. Denies dysuria, frequency, urgency and hematuria. OBJECTIVE: Alert Vital Signs Period Temp Pulse Resp BP Sys/[place] Pulse Ox Last 24 Hr 98.1 F 82 18 164/98 98 HEENT: No Jaundice, eye redness or discharge, PERRLA, EOMI. Normocephalic, atraumatic. External ears are normal and hearing is grossly intact. No nasal discharge. Neck: Supple, nontender. No palpable adenopathy or thyromegaly. No JVD Chest: Good effort. Clear to auscultation and percussion. Heart: Regular. No S3, rub or murmur Abdomen: Not distended, soft, nontender and no HSM. No rebound or guarding. Normal bowel sounds. Ext: Peripheral pulses intact. No leg edema. Skin: Warm and dry. No petechiae, rash or ecchymosis. Neuro: Alert. Tremulous. Oriented x3. CN 2-12 grossly intact. Sensation grossly intact in all four extremities and DTR are symmetric. Normal gait and plantar reflexes are flexor. Psych: Appropriate mood and affect. Good insight. Current Medications Generic Name Dose Route Start Last Admin Trade Name Freq PRN Reason Stop Dose Admin Nicotine 21 mg 12/27/18 10:00 Nicoderm Patch - TD DAILY [facility] Home Medications Medication Instructions Recorded Amlodipine Besylate 10 mg PO DAILY 12/29/16 Aspirin [ASA -] 81 mg PO DAILY 12/29/16 Atorvastatin Ca [Lipitor] 80 mg PO DAILY 12/29/16 Metoprolol Succinate [Toprol XL -] 100 mg PO DAILY 12/29/16 Ezetimibe [Zetia -] 10 mg PO HS #60 tablet 08/20/18 Abnormal Lab Results 12/26/18 12/26/18 17:00 17:00 MCV 99.4 H MCH 33.9 H Chloride 109 H Total LDL Cholesterol 110 H ASSESSMENT AND PLAN: 1. Transient Ischemic Attack - Symptoms resolved while he was in the ER. No acute abnormality on head CT. Patient was outside the time window for tPA by the time he was evaluated. NIHSS score was 0. ER staff discussed case with the neurologist Dr. Chun who recommends a brain MRI. Patient got Aspirin 324 mp PO in the ER. EKG shows sinus bradycardia but no significant ST-T wave changes. Will intensify hyperlipidemia drug and diet therapy in view of LDL of 110. Discuss with neurology whether he needs workup to rule out multiple sclerosis. Patient counseled to follow up with his equipment application specialist for the recently detected RML ground glass opacity. 2. Tobacco Use Counseled on risks associated with tobacco use. We will provide patient all the necessary assistance to facilitate smoking cessation and prescribe Nicotine patch. 3. Alcohol abuse - Implement [facility] alcohol withdrawal protocol and do neurochecks. Implement seizure, fall and aspiration precautions. Treat with thiamine and folic acid and monitor electrolytes (Ca,Mg,K,P). Counseled patient about abstaining from alcohol. Will consult lean manufacturing specialist and refer to alcohol detox upon discharge. 4. Hypertension - Will practice permissive hypertension for the next 24-48 hour. Restart suitable outpatient antihypertensive drugs when clinically appropriate. Nonpharmacologic measures to control hypertension like weight loss , salt restriction and exercise discussed. 5. DVT prophylaxis - Lovenox 40 mg SQ q 24 hours. 6. Advance directives - Full code
[2018-12-27] MEDS ORDERED: chlordiazePOXIDE 5 MG CAPSULE PO PRN (03:23)
--- NOTE | 2018-12-27 03:25 | HP ---
Admitting History and Physical - Admission Chief Complaint: Difficulty speaking and R wrist tingling x 1 day History of Present Illness: Pt is a 58 yo M with a PMHx of Tobacco use, Penicillin allergy, HTN, COPD, CAD s /p stent 2015, carotid artery stenosis (neck CTA 2017 showed 83% stenosis of the L internal carotid artery) and ETOH abuse, presenting after a 30s-1min episode of difficulty articulating his speech and slight confusion. Pt noted the difficulty with speech at 14:00 and presented at 16:30; NIH stroke scale upon arrival was 0 as he said his symptoms had resolved, and he was asymptomatic. He states that he also had numbness to his right wrist at that time which persisted for a couple of hours but has now resolved. No hx of trauma , no prior sx, no tremors or seizures, no blurrying of vision, no loss of consciousness, no incontinence of stool or urine. At that time, pt had no difficulty moving any extremity but reported feeling groggy earlier in the morning and afternoon. Pt drinks 8-10 drinks of hard alcohol daily - last drink was at 15:00 today - most recently admitted 08/2018 for hemoptysis), He was alone when this occurred. Pt denies alcoholic seizures, but reports never been off ETOH for long periods. Denies weight loss, fatigue, fever, extremity focal weakness, headache, n/t, n/v, abdominal pain, diarrhea, constipation, blood in stool, chest pain, edema. The patient states a similar episode occurred 3-4 years ago but he did not seek medical attention then. He has been following with Dr. Mina of vascular surgery for carotid artery stenosis and PVD and had recent imaging done which still showed 83%stenosis. He notes he has been experiencing pain in his calves with ambulation for the past few years, and recently had prasugrel discontinued in Aug 2018, by his news writer, Dr. Clifton. Pt reports taking meds on more days than not. Pt noted with recent R middle lobe ground glass opacity (chest CT-2019) attempting to reestablish care with prior pulm Dr. Wright, and yet to get repeat CT done. No recent use of inhalers, intermittent cough with greenish sputum, no new sputum production. He has never experienced alcohol withdrawal seizures. Has not been to any rehab facility. ED course (1)CTA neck: 83% stenosis at level of the proximal L internal carotid artery; no R carotid artery stenosis. Centrilobular emphysema in the upper lung patricia. (2) CT head: No CT evidence of acute intracranial pathology. No change from 2017. (3) Given folic acid, thiamine, and ASA History Source: Patient Limitations to Obtaining History: No Limitations - Past Medical History Cardiovascular: Yes: CAD, HTN Pulmonary: Yes: COPD Gastrointestinal: Yes: GI Bleed ENT: Yes: Other (nosebleeds) - Smoking History Smoking history: Current every day smoker (1ppd x 40 years (started at 15years)) Have you smoked in the past 12 months: Yes Aproximately how many cigarettes per day: 20 - Alcohol/Substance Use Hx Alcohol Use: Yes Number of Drinks Daily: 8 (8 drinks minimum a day, 2 every hour) History of Substance Use: reports: None - Social History Usual Living Arrangement: Yes: With Parent ADL: Independent 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 History of Recent Travel: No Home Medications - Allergies Allergies/Adverse Reactions: Allergies Allergy/AdvReac Type Severity Reaction Status Date / Time Penicillins Allergy Verified 12/26/18 16:34 - Home Medications Home Medications: Ambulatory Orders Amlodipine Besylate 10 mg PO DAILY 12/29/16 Aspirin [ASA -] 81 mg PO DAILY 12/29/16 Atorvastatin Ca [Lipitor] 80 mg PO DAILY 12/29/16 Metoprolol Succinate [Toprol XL -] 100 mg PO DAILY 12/29/16 Ezetimibe [Zetia -] 10 mg PO HS #60 tablet 08/20/18 Albuterol Sulfate Inhaler - [Ventolin HFA Inhaler -] 2 puff IN PRN 12/27/18 Prasugrel HCl 10 mg PO DAILY 12/27/18 Umeclidinium [place] [Incruse Ellipta] 1 puff IN PRN 12/27/18 Family Disease History - Family Disease History Family Disease History: Respiratory: Mother (COPD, smoker), Other: Father (TIA, NPH -88yrs), Mother, Brother (ALS (younger brother), MS (older brother)) Review of Systems - Review of Systems Constitutional: denies: Chills, Diaphoresis, Fever, Lethargy, Loss of Appetite Eyes: denies: Blurred Vision, Double Vision, Eye Pain, Photophobia HENT: denies: Difficult Swallowing Physical Examination Vital Signs: Vital Signs Temperature 98.1 F 12/26/18 16:30 Pulse Rate 82 12/26/18 16:30 Respiratory Rate 18 12/26/18 16:30 Blood Pressure 164/98 12/26/18 16:30 O2 Sat by Pulse Oximetry (%) 98 12/26/18 16:30 Constitutional: Yes: No Distress, Anxious Eyes: Yes: Conjunctiva Clear, EOM Intact, PERRL, Other (No nystagmus) HENT: Yes: Atraumatic. No: Drooling, Pharyngeal Erythema Neck: Yes: Supple Cardiovascular: Yes: Regular Rate and Rhythm, S1, S2 Respiratory: Yes: CTA Bilaterally Gastrointestinal: Yes: Normal Bowel Sounds, Soft. No: Tenderness Renal/: No: CVA Tenderness - Left, CVA Tenderness - Right Musculoskeletal: No: Back Pain, Joint Stiffness, Joint Swelling, Muscle Pain, Muscle Weakness Extremities: No: Calf Tenderness, Cold, Erythema Edema: No Peripheral Pulses: Left Doralis Pedis: 1+, Right Dorsalis Pedis: 1+ Integumentary: No: Bruising Neurological: Yes: Alert, Oriented, Babinski negative, Cran Nerves II-XII Intact , Tremors, Other (paast pointing). No: Aphasia, Asterixis, Ataxia, Confusion, Dysarthria, Facial Droop, Lethargy, Numbness, Paresthesia, Seizure, Unsteady Gait Labs: CBC, BMP 12/26/18 17:00 12/26/18 17:00 Imaging - Results Cat Scan: Report Reviewed Assessment/Plan Pt is a 58 yo M with a PMHx of Tobacco use, Penicillin allergy, HTN, COPD, CAD s /p stent 2015, carotid artery stenosis (neck CTA 2017 showed 83% stenosis of the L internal carotid artery) and ETOH abuse, presenting after a 30s-1min episode of difficulty articulating his speech and slight confusion. Dysarthria TIA R/O MS Pt with 83% L carotid stenosis being followed up by vascular Pt with family hx of TIAS and MS, prior hx of similar episode 3-4 years ago MRI W/and W/o contrast Neuro consult- Dr Chun VAscular -Dr Leopoldo Mack ASA Permissve HTN until 2.00pm tomorrow NIH-0 would not be a candidate for TPA Statins ASA Elevated lipids ECHO Speech and swallow eval PT NPO Tobacco use, Nicotine patch Penicillin allergy Avoid pens HTN Permissive HTN COPD Not in exacerbation, albuterol nebs CAD s/p stent 2016, Cont ASA, recently off prasugrel because of fall/bleeding risk carotid artery stenosis (neck CTA 2017 showed 83% stenosis of the L internal carotid artery) Vascular on board NPO for possible intervention ETOH abuse Thiamine, folic acid, librium protocol (tremors, anxious) Lung mass Recently diagnosed, yet to follow as outpt Tele No standing fluids NPO pending swallow eval/ procedure Chemical PPx on hold pending surgical eval Visit type - Emergency Visit Emergency Visit: Yes ED Registration Date: 12/26/18 Care time: The patient presented to the Emergency Department on the above date and was hospitalized for further evaluation of their emergent condition. - New Patient This patient is new to me today: Yes Date on this admission: 12/26/18 - Critical Care Critical Care patient: No
[2018-12-27] MEDS ORDERED: chlordiazePOXIDE HCL 25 MG CAPSULE ONE (05:08)
[2018-12-27] MEDS: chlordiazePOXIDE HCL 25 MG CAPSULE PO SCH ×2 (05:30→21:22)
[2018-12-27 06:08] LABS: BASO % 0.9 % (0-2.0); EOS % 2.6 % (0-4.5); HEMATOCRIT 42.6 % (35.4-49); HEMOGLOBIN 14.8 GM/dL (11.7-16.9); LYMPH % 26.1 % (8-40); MCH 34.3 pg (25.7-33.7); MCHC 34.7 g/dl (32.0-35.9); MEAN CELL VOLUME 98.6 fl (80-96); MEAN PLT VOLUME 8.1 fl (7.5-11.1); NEUT % 63.4 % (42.8-82.8); PLATELET COUNT 334 K/MM3 (134-434); RBC 4.32 M/mm3 (4.00-5.60); RDW 13.1 % (11.9-15.9); WHITE BLOOD COUNT 9.9 K/mm3 (4.0-10.0)
[2018-12-27 06:49] LABS: ALBUMIN 3.8 g/dl (3.4-5.0); BILIRUBIN,TOTAL 0.8 mg/dL (0.2-1); CALCIUM 8.8 mg/dL (8.5-10.1); MAGNESIUM 2.5 mg/dL (1.8-2.4); PHOSPHOROUS 3.7 mg/dL (2.5-4.9); POTASSIUM 4.2 mmol/L (3.5-5.1); TOT PROT 6.5 g/dl (6.4-8.2)
[2018-12-27] MEDS: ASPIRIN 81 MG CHEWABLE TABLETS PO SCH (09:35)
[2018-12-27] MEDS: FOLIC ACID 1 MG TABLET (FP) PO SCH (09:35)
[2018-12-27] MEDS: NICOTINE 21 MG/24 HOURS TOPICAL PATCH TD SCH (09:35)
[2018-12-27] MEDS: THIAMINE HCL 200 MG/2 ML VIAL IVPB SCH (09:35)
--- NOTE | 2018-12-27 10:22 | CONSULT ---
Consult - text type - Consultation Consultation Note: Neurology Admitting History and Physical Chief Complaint: Difficulty speaking and R wrist tingling x 1 day History of Present Illness: 58 yo M with a PMHx of Tobacco use, Penicillin allergy, HTN, COPD, CAD s/p stent 2015, carotid artery stenosis (neck CTA showed 83% stenosis of the L internal carotid artery) and ETOH abuse, presenting after a 30s-1min episode of difficulty articulating his speech and slight confusion. Pt noted the difficulty with speech at 14:00 on day of admission and presented at 16:30; NIH stroke scale upon arrival was 0 as he said his symptoms had resolved and therefore was not a TPA candidate. Of note, he consumes 8-10 drinks of hard alcohol daily - last drink was at 15:00 day of admission. Most recently admitted 08/2018 for hemoptysis. He denied alcohol related seizures, but reported never been off ETOH for long periods. Denied weight loss, fatigue, fever, extremity focal weakness, headache, n/t, n/v, abdominal pain, diarrhea, constipation, blood in stool, chest pain, edema. The patient stated a similar episode occurred 3-4 years ago but he did not seek medical attention then. He has been following with Dr. Mina of vascular surgery for carotid artery stenosis and PVD and had recent imaging done which still showed 83% stenosis. He noted he had been experiencing pain in his calves with ambulation for the past few years, and recently had prasugrel discontinued in Aug 2018, by his religion teacher, Dr. Clifton. Pt reports taking meds on more days than not. CT head completed and showed no CT evidence of acute intracranial pathology. No change from 07/2017. I advised MRI brain to confirm no infarct. Also advised evaluation from vascular specialist to determine if intervention of carotid artery is warranted in the context of his right sided transient deficit with left carotid artery stenosis. 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 History of Recent Travel: No Home Medications - Allergies Allergies/Adverse Reactions: Allergies Allergy/AdvReac Type Severity Reaction Status Date / Time Penicillins Allergy Verified 12/26/18 16:34 - Home Medications Home Medications: Ambulatory Orders Amlodipine Besylate 10 mg PO DAILY 12/29/16 Aspirin [ASA -] 81 mg PO DAILY 12/29/16 Atorvastatin Ca [Lipitor] 80 mg PO DAILY 12/29/16 Metoprolol Succinate [Toprol XL -] 100 mg PO DAILY 12/29/16 Ezetimibe [Zetia -] 10 mg PO HS #60 tablet 08/20/18 Family Disease History - Family Disease History Family Disease History: Respiratory: Mother (COPD, smoker), Other: Father (TIA, NPH -88yrs), Mother, Brother (ALS (younger brother), MS (older brother)) Review of Systems - Review of Systems Constitutional: denies: Chills, Diaphoresis, Fever, Lethargy, Loss of Appetite Eyes: denies: Blurred Vision, Double Vision, Eye Pain, Photophobia HENT: denies: Difficult Swallowing Physical Examination Vital Signs: Vital Signs Temperature 98.1 F 12/26/18 16:30 Pulse Rate 82 12/26/18 16:30 Respiratory Rate 18 12/26/18 16:30 Blood Pressure 164/98 12/26/18 16:30 O2 Sat by Pulse Oximetry (%) 98 12/26/18 16:30 Constitutional: Yes: No Distress, Anxious Eyes: Yes: Conjunctiva Clear, EOM Intact, PERRL, Other (No nystagmus) HENT: Yes: Atraumatic. No: Drooling, Pharyngeal Erythema Neck: Yes: Supple Cardiovascular: Yes: Regular Rate and Rhythm, S1, S2 Respiratory: Yes: CTA Bilaterally Gastrointestinal: Yes: Normal Bowel Sounds, Soft. No: Tenderness Renal/: No: CVA Tenderness - Left, CVA Tenderness - Right Musculoskeletal: No: Back Pain, Joint Stiffness, Joint Swelling, Muscle Pain, Muscle Weakness Extremities: No: Calf Tenderness, Cold, Erythema Edema: No Peripheral Pulses: Left Doralis Pedis: 1+, Right Dorsalis Pedis: 1+ Integumentary: No: Bruising Neurological: Yes: Alert, Oriented, Babinski negative, Cran Nerves II-XII Intact , Tremors, Other (paast pointing). No: Aphasia, Asterixis, Ataxia, Confusion, Dysarthria, Facial Droop, Lethargy, Numbness, Paresthesia, Seizure, Unsteady Gait CBCD WBC 9.9 K/mm3 (4.0-10.0) 12/27/18 05:29 RBC 4.32 M/mm3 (4.00-5.60) 12/27/18 05:29 Hgb 14.8 GM/dL (11.7-16.9) 12/27/18 05:29 Hct 42.6 % (35.4-49) 12/27/18 05:29 MCV 98.6 fl (80-96) H 12/27/18 05:29 MCHC 34.7 g/dl (32.0-35.9) 12/27/18 05:29 RDW 13.1 % (11.9-15.9) 12/27/18 05:29 Plt Count 334 K/MM3 (134-434) 12/27/18 05:29 MPV 8.1 fl (7.5-11.1) 12/27/18 05:29 CMP Sodium 140 mmol/L (136-145) 12/27/18 05:29 Potassium 4.2 mmol/L (3.5-5.1) 12/27/18 05:29 Chloride 107 mmol/L (98-107) 12/27/18 05:29 Carbon Dioxide 27 mmol/L (21-32) 12/27/18 05:29 Anion Gap 5 MMOL/L (8-16) L 12/27/18 05:29 BUN 14.0 mg/dL (7-18) 12/27/18 05:29 Creatinine 1.0 mg/dL (0.55-1.3) 12/27/18 05:29 Random Glucose 91 mg/dL (74-106) 12/27/18 05:29 Calcium 8.8 mg/dL (8.5-10.1) 12/27/18 05:29 Total Bilirubin 0.8 mg/dL (0.2-1) 12/27/18 05:29 AST 16 U/L (15-37) 12/27/18 05:29 ALT 21 U/L (13-61) 12/27/18 05:29 Alkaline Phosphatase 75 U/L (45-117) 12/27/18 05:29 Total Protein 6.5 g/dl (6.4-8.2) 12/27/18 05:29 Albumin 3.8 g/dl (3.4-5.0) 12/27/18 05:29 CARDIAC ENZYMES Creatine Kinase 128 U/L (26-308) 12/26/18 17:00 Troponin I < 0.02 ng/ml (0.00-0.05) 12/26/18 17:00 Assessment/Plan 58 yo M with a PMHx of Tobacco use, Penicillin allergy, HTN, COPD, CAD s/p stent 2015, carotid artery stenosis (neck CTA showed 83% stenosis of the L internal carotid artery) and ETOH abuse, presenting after a 30s-1min episode of difficulty articulating his speech and slight confusion. Pt noted the difficulty with speech at 14:00 on day of admission and presented at 16:30; NIH stroke scale upon arrival was 0 as he said his symptoms had resolved and therefore was not a TPA candidate. Of note, he consumes 8-10 drinks of hard alcohol daily - last drink was at 15:00 day of admission. Most recently admitted 08/2018 for hemoptysis. He denied alcohol related seizures, but reported never been off ETOH for long periods. Denied weight loss, fatigue, fever, extremity focal weakness, headache, n/t, n/v, abdominal pain, diarrhea, constipation, blood in stool, chest pain, edema. The patient stated a similar episode occurred 3-4 years ago but he did not seek medical attention then. He has been following with Dr. Mina of vascular surgery for carotid artery stenosis and PVD and had recent imaging done which still showed 83% stenosis. He noted he had been experiencing pain in his calves with ambulation for the past few years, and recently had prasugrel discontinued in Aug 2018, by his religion teacher, Dr. Clifton. Pt reports taking meds on more days than not. CT head completed and showed no CT evidence of acute intracranial pathology. No change from 07/2017. I advised MRI brain to confirm no infarct. Also advised evaluation from vascular specialist to determine if intervention of carotid artery is warranted in the context of his right sided transient deficit with left carotid artery stenosis. continue aspirin and statin, follow-up lipid profile. Monitor for alcohol related withdrawal, Librium protocol. monitor blood pressure, maintain <160/90. DVT ppx.
--- NOTE | 2018-12-27 11:00 | CONSULT ---
Admitting History and Physical - Primary Care Physician PCP: Jax Sandoval - Admission History of Present Illness: Pt is a 58 yo M with a PMHx of Tobacco use, Penicillin allergy, HTN, COPD, CAD s /p stent 2015, carotid artery stenosis (neck CTA 2017 showed 83% stenosis of the L internal carotid artery) and ETOH abuse, presenting after a 30s-1min episode of difficulty articulating his speech and slight confusion. This is my first consult with this pt. 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
--- NOTE | 2018-12-27 12:59 | ECHO ---
Name: ASHLEE CORTES Exam:Adult Echocardiogram Study Date: 12/27/2018 10:37 AM Age: 58 yrs Height: 68 in Weight: 150 lb BSA: 1.8 m2 MMode/2D Measurements & Calculations IVSd: 0.80 cm Ao root diam: 2.5 cm LVIDd: 4.8 cm LA dimension: 3.4 cm LVIDs: 3.1 cm LVPWd: 0.77 cm EDV(Teich): 109.4 ml LVOT diam: 2.0 cm ESV(Teich): 36.6 ml Doppler Measurements & Calculations MV E max hemanth: 48.7 cm/sec Ao V2 max: 135.0 cm/sec MV A max hemanth: 15.1 cm/sec Ao max P.3 mmHg MV E/A: 3.2 Ao V2 mean: 96.0 cm/sec MV dec time: 0.24 sec Ao mean P.1 mmHg Ao V2 VTI: 32.5 cm DARNELL(I,D): 1.6 cm2 DARNELL(V,D): 1.7 cm2 LV V1 max P.1 mmHg SV(LVOT): 51.4 ml LV V1 mean P.1 mmHg LV V1 max: 72.0 cm/sec LV V1 mean: 48.8 cm/sec LV V1 VTI: 15.8 cm Med Peak E' Hemanth: 6.9 cm/sec Med E/e': 7.0 Lat Peak E' Hemanth: 9.3 cm/sec Lat E/e': 5.3 Procedure The study was technically difficult with many images being suboptimal in quality. Left Ventricle Left ventricular systolic function is grossly normal. Ejection Fraction = 55-60%. Regional wall motio n abnormalities cannot be excluded due to limited visualization. Right Ventricle The right ventricle is grossly normal size. The right ventricular systolic function is grossly normal . Atria Normal left and right atrial size and function. Mitral Valve The mitral valve is normal in structure and function. There is no mitral valve stenosis. There is tra ce to mild mitral regurgitation. Tricuspid Valve The tricuspid valve is normal in structure and function. There is mild tricuspid regurgitation. Aortic Valve There is mild aortic sclerosis.;. No hemodynamically significant valvular aortic stenosis. No aortic regurgitation is present. Pulmonic Valve The pulmonic valve is not well seen, but is grossly normal. There is no pulmonic valvular stenosis. T here is no pulmonic valvular regurgitation. Great Vessels The aortic root is normal size. Pericardium/Pleura There is no pericardial effusion. Interpretation Summary The study was technically difficult with many images being suboptimal in quality. Regional wall motion abnormalities cannot be excluded due to limited visualization. Left ventricular systolic function is grossly normal. Ejection Fraction = 55-60%. There is trace to mild mitral regurgitation. There is mild tricuspid regurgitation. There is mild aortic sclerosis.; MD Ortega *Meghana 12/27/2018 12:59 PM
--- NOTE | 2018-12-27 13:23 | CONSULT ---
Admitting History and Physical - Primary Care Physician PCP: Jax Sandoval - Admission History of Present Illness: Pt is a 58 yo M with a PMHx of Tobacco use, Penicillin allergy, HTN, COPD, CAD s /p stent 2016, carotid artery stenosis (neck CTA 2017 showed 83% stenosis of the L internal carotid artery) and ETOH abuse, presenting after a 30s-1min episode of difficulty articulating his speech and slight confusion. Pt reports brief period of unintelligible speech production with right shaking/ weakness. This is my first consult with this pt. 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 History of Recent Travel: No History - Admission Reason For Visit: TRANSIENT ISCHEMIC ATTACK, WEAKNESS - Diagnostics X-ray: Report Reviewed CT Scan: Report Reviewed MRI: Pending - General Mental Status: Alert and Oriented, Awake and Alert, Able to Follow Commands Attention: Intact Ability to Follow Directions: Good Head/Neck Control: WFL - Hearing Hearing: Functional Speech Evaluation - Communication Primary Language: LATVIAN Oral Expression Ability: Yes: Mild Impairment (Mild hesitancy, anomia, sound errors which pt contributes to feeling tied and not eating.) - Speech Production Able to Make Needs Known: Yes: Mildly Impaired Intelligibility: Yes: WNL - Speech Characteristics Voice Loudness: Normal Voice Pitch: Yes: Normal Voice Phonatory-based Quality: Yes: Normal Speech Clarity: < 100% Nasal Resonance: Normal Articulation: Yes: Precise - Language/Auditory Comprehension Follows: Yes: 1 Stage Simple Commands Observation: Able to respond to yes/no queries: Yes, Yes/No Confusion: No, Comprehends Conversational Speech: Yes - Language/Verbal Expression Aphasia: Yes: Sound Errors Able to Communicate Wants and Needs: Yes: Mildly Impaired Attempts to Correct Errors: Yes - Memory/Perception [employer] 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 Memory: Yes: WNL Short Term Memory: Yes: WNL - Swallow Evaluation/Bedside Assessment Current Nutritional Intake: NPO Oral Secretions: Yes: WFL Dentition: Yes: Adequate Facial Symmetry at Rest: Facial Droop Right (very slight?) Facial Symmetry on Retraction: Symmetrical Facial Movement: Controlled Against Resistance Opening: Normal Against Resistance Closing: Normal Pucker Lips: Normal Smile: Normal Lingual Movement: Normal, Symmetric Lingual Speed of Movement: Normal Lingual Movement Strgth Against Opposition: Normal Rate of Intake: WFL Bolus Size: WFL Labial Seal: WFL Chewing: WFL Oral Prep Time: WFL A-P Transit: WFL Timing of Swallow: WFL Coughing/Throat Clear: No Change in Voice: No Recommendations - Speech Evaluation, Impression/Plan Impression: Mild hesitancy, anomia, sound errors which pt contributes to feeling tied and not eating. Good mastication. (-) 3 oz water test. MRI /MRA ( +), refer to official report. - Disposition Discharge to: To be Determined (No flow Left IA/L MCA. Pending sx consult. Pt is able to swallow but may want to maintain NPO pending intervention. He had a talisha cracker and a cup of water with me at 1:45 pm.) - Dysphagia Impressions/Plan Swallowing Skills: WFL
--- NOTE | 2018-12-27 13:40 | EKG ---
Test Reason : Blood Pressure : / mmHG Vent. Rate : 055 BPM Atrial Rate : 055 BPM P-R Int : 132 ms QRS Dur : 084 ms QT Int : 412 ms P-R-T Axes : 046 058 058 degrees QTc Int : 394 ms POOR DATA QUALITY, INTERPRETATION MAY BE ADVERSELY AFFECTED SINUS BRADYCARDIA WHEN COMPARED WITH ECG OF 20-AUG-2018 04:52, NO SIGNIFICANT CHANGE WAS FOUND Confirmed by BHUMI VERMA MD ([id number]) on 12/27/2018 1:39:45 PM Referred By: Confirmed By:BHUMI VERMA MD
[2018-12-27] MEDS ORDERED: chlordiazePOXIDE HCL 10 MG CAPSULE PO PRN (14:23)
--- NOTE | 2018-12-27 14:57 | PN ---
Progress Note (short form) - Note Progress Note: Vascular surgery 58 year old male with TIA at home Pt experienced slurring of speech and right sided weakness. All has resolved now. CTA done on 12/23 showed 83% stenosis of left ICA MRA done today shows 100% occlusion of ICA Spoke to Dr. Lopez in Radiology. [facility] that we order CTA to make sure the ICA is closed or not. CTA will show us if there is a string sign. CTA ordered. Chano Mina DO
--- NOTE | 2018-12-27 16:28 | PN ---
Teaching Attending Note Name of Resident: Tonya Larios ATTENDING PHYSICIAN STATEMENT I saw and evaluated the patient. I reviewed the resident's note and discussed the case with the resident. I agree with the resident's findings and plan as documented. SUBJECTIVE: Reports resolution of symptoms - no further slurring of speech or RUR weakness/numbness. No headache/visual disturbance. OBJECTIVE: Afebrile, Hemodynamically Stable. Last Vital Signs Temp Pulse Resp BP Pulse Ox 97.9 F 59 L 16 130/70 98 12/27/18 15:46 12/27/18 15:46 12/27/18 15:46 12/27/18 15:46 12/27/18 15:46 HEENT - Atraumatic, Normocephalic. Heart - S1, S2, RRR Lungs - clear to auscultation Abdomen - Soft, non-tender. Bowel Sounds normal. Extremities - no edema, no calf tenderness. Neuro - AAO x 3. Tone/Power normal all 4 extremities. Laboratory Results - last 24 hr 12/26/18 12/26/18 12/26/18 17:00 17:00 17:00 WBC 9.9 RBC 4.41 Hgb 15.0 Hct 43.9 MCV 99.4 H MCH 33.9 H MCHC 34.1 RDW 13.4 Plt Count 358 MPV 8.0 Absolute Neuts (auto) 7.6 Neutrophils % 76.8 D Lymphocytes % 15.0 D Monocytes % 6.5 Eosinophils % 0.6 Basophils % 1.1 Nucleated RBC % 0 PT with INR 11.40 INR 0.97 Sodium 142 Potassium 4.3 Chloride 109 H Carbon Dioxide 24 Anion Gap 9 BUN 11.5 Creatinine 1.0 Est GFR (CKD-EPI)AfAm 94.39 Est GFR (CKD-EPI)NonAf 81.44 POC Glucometer Random Glucose 97 Hemoglobin A1c % Calcium 9.0 Phosphorus Magnesium Total Bilirubin 0.6 AST 17 ALT 21 Alkaline Phosphatase 78 Creatine Kinase 128 Troponin I < 0.02 Total Protein 7.1 Albumin 4.3 Triglycerides 127 Cholesterol 172 Total LDL Cholesterol 110 H HDL Cholesterol 52 12/27/18 12/27/18 12/27/18 05:29 05:29 05:29 WBC 9.9 RBC 4.32 Hgb 14.8 Hct 42.6 MCV 98.6 H MCH 34.3 H MCHC 34.7 RDW 13.1 Plt Count 334 MPV 8.1 Absolute Neuts (auto) 6.3 Neutrophils % 63.4 Lymphocytes % 26.1 D Monocytes % 7.0 Eosinophils % 2.6 D Basophils % 0.9 Nucleated RBC % 0 PT with INR INR Sodium 140 Potassium 4.2 Chloride 107 Carbon Dioxide 27 Anion Gap 5 L BUN 14.0 Creatinine 1.0 Est GFR (CKD-EPI)AfAm 94.39 Est GFR (CKD-EPI)NonAf 81.44 POC Glucometer Random Glucose 91 Hemoglobin A1c % 5.6 Calcium 8.8 Phosphorus 3.7 Magnesium 2.5 H Total Bilirubin 0.8 AST 16 ALT 21 Alkaline Phosphatase 75 Creatine Kinase Troponin I Total Protein 6.5 Albumin 3.8 Triglycerides Cholesterol Total LDL Cholesterol HDL Cholesterol 12/27/18 09:59 WBC RBC Hgb Hct MCV MCH MCHC RDW Plt Count MPV Absolute Neuts (auto) Neutrophils % Lymphocytes % Monocytes % Eosinophils % Basophils % Nucleated RBC % PT with INR INR Sodium Potassium Chloride Carbon Dioxide Anion Gap BUN Creatinine Est GFR (CKD-EPI)AfAm Est GFR (CKD-EPI)NonAf POC Glucometer 80 Random Glucose Hemoglobin A1c % Calcium Phosphorus Magnesium Total Bilirubin AST ALT Alkaline Phosphatase Creatine Kinase Troponin I Total Protein Albumin Triglycerides Cholesterol Total LDL Cholesterol HDL Cholesterol Current Medications Generic Name Dose Route Start Last Admin Trade Name Freq PRN Reason Stop Dose Admin Aspirin 81 mg 12/27/18 10:00 12/27/18 09:35 Asa - PO 81 mg DAILY [facility] Administration Atorvastatin Calcium 80 mg 12/27/18 22:00 Lipitor - PO HS [facility] Chlordiazepoxide HCl 10 mg 12/29/18 21:00 Librium - PO 12/30/18 21:00 Q12H PRN Signs/symptoms of Withdrawal Chlordiazepoxide HCl 10 mg 12/27/18 14:23 Librium - PO 12/29/18 21:00 Q8H PRN Signs/symptoms of Withdrawal Chlordiazepoxide HCl 25 mg 12/27/18 21:00 Librium - PO 12/28/18 13:01 Q8H [facility]INA Chlordiazepoxide HCl 15 mg 12/28/18 21:00 Librium - PO 12/29/18 13:01 Q8H [facility] Chlordiazepoxide HCl 10 mg 12/29/18 21:00 Librium - PO 12/30/18 21:01 Q8H [facility] Ezetimibe 10 mg 12/27/18 22:00 Zetia - PO HS SINA Folic Acid 1 mg 12/27/18 10:00 12/27/18 09:35 Folic Acid - PO 1 mg DAILY [facility] Administration Heparin Sodium (Porcine) 5,000 unit 12/27/18 14:00 Heparin - SQ TID [facility] Metoprolol Succinate 100 mg 12/27/18 10:00 12/27/18 09:35 Toprol Xl - PO 100 mg DAILY [facility] Administration Nicotine 21 mg 12/27/18 10:00 12/27/18 09:35 Nicoderm Patch - TD Not Given DAILY [facility] Thiamine HCl 200 mg 12/27/18 10:00 12/27/18 09:35 Vitamin B1 Injection - IVPB 200 mg DAILY [facility] Administration Home Medications Medication Instructions Recorded Amlodipine Besylate 10 mg PO DAILY 12/29/16 Aspirin [ASA -] 81 mg PO DAILY 12/29/16 Atorvastatin Ca [Lipitor] 80 mg PO DAILY 12/29/16 Metoprolol Succinate [Toprol XL -] 100 mg PO DAILY 12/29/16 Ezetimibe [Zetia -] 10 mg PO HS #60 tablet 08/20/18 Albuterol Sulfate Inhaler - 2 puff IN PRN 12/27/18 [Ventolin HFA Inhaler -] Prasugrel HCl 10 mg PO DAILY 12/27/18 Umeclidinium [place] [Incruse 1 puff IN PRN 12/27/18 Ellipta] ASSESSMENT AND PLAN: 58 year old male with HTN, COPD, CAD s/p Stent 2015, CVD s/p CTA 12/23 showing 83 % stenosis of the L ICA, active tobacco use, Alcohol Abuse, presents with an episode of dysarthria and RUE weakness and tingling. 1. TIA Dysarthria, RUE weakness/numbness resolved CTA Neck 12/23 as out-patient - 83 % stenosis L ICA Stenosis Follows with Dr. Mina. Echo - no sig abnormality MRI/MRA Brain ordered - prelim report - L ICA occlusion and faint flow L MCA Discussed with Dr. Mina - Recommends repeat CTA Neurology and Vascular Surgery following. Continue Aspirin/Statin for now. ?Need for AC - further recommendations as per Vascular Surgery. 2. HTN - Normally on Norvasc, Metoprolol - Resume Metoprolol. 3. COPD -Stable. Continue Incruse Ellipta and Albuterol prn. 4. Alcohol Abuse Not displaying withdrawal symptoms currently. Will maintain on Librium protocol. Continue Thiamine, Folic Acid. 5. CAD s/p PCI/Stent 2015 - Continue Aspirin, BB, Statin. Recently stopped Prasugrel. 6. Lung Mass/RML opacity on CT imaging 08/20/18 - needs follow up/repeat imaging once current cerebrovascular issue is resolved. DVT Px - on Heparin SQ, pending further recommendations by Vascular Sx
--- NOTE | 2018-12-27 16:53 | PN ---
Physical Exam: SUBJECTIVE: Patient seen this morning and reports he is feeling better. Patient talking in circles and tangentially, mildly confused. OBJECTIVE: Vital Signs Temperature 97.9 F 12/27/18 15:46 Pulse Rate 59 L 12/27/18 15:46 Respiratory Rate 16 12/27/18 15:46 Blood Pressure 130/70 12/27/18 15:46 O2 Sat by Pulse Oximetry (%) 98 12/27/18 15:46 GENERAL: The patient is awake, alert, and fully oriented, in no acute distress. HEAD: Normal with no signs of trauma. LUNGS: Breath sounds equal, clear to auscultation bilaterally, no wheezes, no crackles, no accessory muscle use. HEART: Regular rate and rhythm, S1, S2 without murmur, rub or gallop. ABDOMEN: Soft, nontender, nondistended, normoactive bowel sounds, no guarding, no rebound, no hepatosplenomegaly, no masses. EXTREMITIES: 2+ pulses, warm, well-perfused, no edema. NEUROLOGICAL: Cranial nerves II through XII grossly intact. Normal speech, very mild right sided facial droop SKIN: Warm, dry, normal turgor, no rashes or lesions noted CBC, BMP 12/27/18 05:29 12/27/18 05:29 Active Medications Aspirin (Asa -) 81 mg PO DAILY [facility] Last Admin: 12/27/18 09:35 Dose: 81 mg Atorvastatin Calcium (Lipitor -) 80 mg PO HS [facility] Chlordiazepoxide HCl (Librium -) 10 mg PO Q12H PRN PRN Reason: Signs/symptoms of Withdrawal Stop: 12/30/18 21:00 Chlordiazepoxide HCl (Librium -) 10 mg PO Q8H PRN PRN Reason: Signs/symptoms of Withdrawal Stop: 12/29/18 21:00 Chlordiazepoxide HCl (Librium -) 25 mg PO Q8H [facility] Stop: 12/28/18 13:01 Chlordiazepoxide HCl (Librium -) 15 mg PO Q8H [facility] Stop: 12/29/18 13:01 Chlordiazepoxide HCl (Librium -) 10 mg PO Q8H [facility] Stop: 12/30/18 21:01 Ezetimibe (Zetia -) 10 mg PO HS [facility] Folic Acid (Folic Acid -) 1 mg PO DAILY [facility] Last Admin: 12/27/18 09:35 Dose: 1 mg Heparin Sodium (Porcine) (Heparin -) 5,000 unit SQ TID [facility] Metoprolol Succinate (Toprol Xl -) 100 mg PO DAILY [facility] Last Admin: 12/27/18 09:35 Dose: 100 mg Nicotine (Nicoderm Patch -) 21 mg TD DAILY [facility] Last Admin: 12/27/18 09:35 Dose: Not Given Thiamine HCl (Vitamin B1 Injection -) 200 mg IVPB DAILY [facility] Last Admin: 12/27/18 09:35 Dose: 200 mg ASSESSMENT/PLAN: Patient is a 58 y/o male with a history of HTN COPD, CAD 2015 who is admitted for left carotid stenosis. #TIA with left carotid stenosis and left MCA stenosis - Seen on MRI, repeat CT for better quality image - patient currently asymptomatic - will follow up with Dr Mina - continue asprin 81 mg - atorvastatin 80 mg hs #alcohol abuse - librium taper - continue thiamine and folate - last drink yesterday, drinks 8-10 drinks a day, has a history of withdrawing in the past - patient A & O x3, but conversation hard to follow, circumferential conversations #HTN - toprolol 100 daily #nicotine dependence - nicotine patch #DVT ppx - heparin TD FEN - npo until intervention decided with Leopoldo for stenosis Dispo: intervention as per Leopoldo after CT read -Discussed at length patients condition and patient wishes to sign out AMA. Patient agreed to test and to stay overnight. [place] consult placed to determine competency while patient withdrawing Visit type - Emergency Visit Emergency Visit: No - New Patient This patient is new to me today: No - Critical Care Critical Care patient: No
[2018-12-27] MEDS: EZETIMIBE 10 MG TABLET (FP) PO SCH (21:22)
[2018-12-27] MEDS: HEPARIN NA (PORCINE) 5,000 UNITS/ML 1ML VIAL SQ SCH (21:22)
[2018-12-27] MEDS: ATORVASTATIN CA 80 MG TABLET (FP) PO SCH (21:22)
[2018-12-28] MEDS ORDERED: chlordiazePOXIDE 5 MG CAPSULE PO SCH (05:00)
[2018-12-28] MEDS: chlordiazePOXIDE HCL 25 MG CAPSULE PO SCH ×3 (06:01→17:56)
[2018-12-28] MEDS: HEPARIN NA (PORCINE) 5,000 UNITS/ML 1ML VIAL SQ SCH ×4 (06:02→22:17)
[2018-12-28 08:25] LABS: HEMATOCRIT 42.3 % (35.4-49); HEMOGLOBIN 14.4 GM/dL (11.7-16.9); MCH 33.8 pg (25.7-33.7); MEAN CELL VOLUME 99.4 fl (80-96); MEAN PLT VOLUME 8.4 fl (7.5-11.1); PLATELET COUNT 339 K/MM3 (134-434); RBC 4.26 M/mm3 (4.00-5.60); RDW 13.4 % (11.9-15.9); WHITE BLOOD COUNT 8.6 K/mm3 (4.0-10.0)
[2018-12-28 08:59] LABS: ALBUMIN 3.8 g/dl (3.4-5.0); BILIRUBIN,TOTAL 0.9 mg/dL (0.2-1); BLOOD UREA NITROGEN 15.5 mg/dL (7-18); CALCIUM 8.9 mg/dL (8.5-10.1); MAGNESIUM 2.4 mg/dL (1.8-2.4); POTASSIUM 4.3 mmol/L (3.5-5.1); TOT PROT 6.2 g/dl (6.4-8.2)
--- NOTE | 2018-12-28 10:16 | CON.PSY ---
Psychiatry Consult Chief Complaint: Asked to see Mr. rubalcava, to evaluate for capacity History of Present Problem: Patient has a hx of alcohol abuse and according it was noted that he initially wanted to leave the hospital AMA. Patient is now being treated for ETOH withdrawal with long acting Benzo. He was found this Am, sleepy and his verbal responses were delayed. Difficult to evaluate mental status due to benzo on board. He is aware that he is in "[place]". Admitted to drinking over 5-8 pints of Vodka per day for ' long time'- over 5 years? As to the circumstance of this hospitalization and his initial refusal to stay for treatment, he could not recollect. - Current Medications Current Medications: Active Medications Aspirin (Asa -) 81 mg PO DAILY [facility] Last Admin: 12/27/18 09:35 Dose: 81 mg Atorvastatin Calcium (Lipitor -) 80 mg PO HS [facility] Last Admin: 12/27/18 21:22 Dose: 80 mg Chlordiazepoxide HCl (Librium -) 10 mg PO Q12H PRN PRN Reason: Signs/symptoms of Withdrawal Stop: 12/30/18 21:00 Chlordiazepoxide HCl (Librium -) 10 mg PO Q8H PRN PRN Reason: Signs/symptoms of Withdrawal Stop: 12/29/18 21:00 Chlordiazepoxide HCl (Librium -) 25 mg PO Q8H [facility] Stop: 12/28/18 13:01 Last Admin: 12/28/18 06:01 Dose: 25 mg Chlordiazepoxide HCl (Librium -) 15 mg PO Q8H [facility] Stop: 12/29/18 13:01 Chlordiazepoxide HCl (Librium -) 10 mg PO Q8H [facility] Stop: 12/30/18 21:01 Ezetimibe (Zetia -) 10 mg PO HS [facility] Last Admin: 12/27/18 21:22 Dose: 10 mg Folic Acid (Folic Acid -) 1 mg PO DAILY [facility] Last Admin: 12/27/18 09:35 Dose: 1 mg Heparin Sodium (Porcine) (Heparin -) 5,000 unit SQ TID [facility] Last Admin: 12/28/18 06:05 Dose: 5,000 unit Metoprolol Succinate (Toprol Xl -) 100 mg PO DAILY [facility] Last Admin: 12/27/18 09:35 Dose: 100 mg Nicotine (Nicoderm Patch -) 21 mg TD DAILY [facility] Last Admin: 12/27/18 09:35 Dose: Not Given Thiamine HCl (Vitamin B1 Injection -) 200 mg IVPB DAILY [facility] Last Admin: 12/27/18 09:35 Dose: 200 mg - Allergies Allergies: Allergies Allergy/AdvReac Type Severity Reaction Status Date / Time Penicillins Allergy Verified 12/26/18 16:34 - Current Living Status Usual Living Arrangement: Other (no info ontained) - Current Mental Status Evaluation Appearance: Other (sleepy -) Attitude: Other (affected by his meds- benzo) - Mood Mood: Other (neutral) - Speech/Language Expressive: Delayed (delayed incoherent, slurred- affected by meds), Slurred, Incoherent (incoherent at time,) - Psychomotor Activity Psychomotor Activity: Slowed - Thought Process Thought Process: Other (unable to elicit ) - Thought Content Hallucinations: Absent (no elisabet psychosis-) - Cognition Attention: Alert Orientation: Person (unable to proceed due to somnolence) Assessment/Plan Patient has longacting benzo on board for alcohol withdrawal and mental status exam was limited Patient has no capacity to make his own decisons secondary to ETOH withdrawal In this case, patient is treated according to his best interest-
[2018-12-28] MEDS: THIAMINE HCL 200 MG/2 ML VIAL IVPB SCH (11:02)
[2018-12-28] MEDS: FOLIC ACID 1 MG TABLET (FP) PO SCH (11:02)
[2018-12-28] MEDS: NICOTINE 21 MG/24 HOURS TOPICAL PATCH TD SCH (11:02)
[2018-12-28] MEDS: ASPIRIN 81 MG CHEWABLE TABLETS PO SCH (11:02)
--- NOTE | 2018-12-28 11:19 | PN ---
Progress Note (short form) - Note Progress Note: Neurology Admitting History and Physical Chief Complaint: Difficulty speaking and R wrist tingling x 1 day History of Present Illness: 58 yo M with a PMHx of Tobacco use, Penicillin allergy, HTN, COPD, CAD s/p stent 2015, carotid artery stenosis (neck CTA showed 83% stenosis of the L internal carotid artery) and ETOH abuse, presenting after a 30s-1min episode of difficulty articulating his speech and slight confusion. Pt noted the difficulty with speech at 14:00 on day of admission and presented at 16:30; NIH stroke scale upon arrival was 0 as he said his symptoms had resolved and therefore was not a TPA candidate. Of note, he consumes 8-10 drinks of hard alcohol daily - last drink was at 15:00 day of admission. Most recently admitted 08/2018 for hemoptysis. He denied alcohol related seizures, but reported never been off ETOH for long periods. Denied weight loss, fatigue, fever, extremity focal weakness, headache, n/t, n/v, abdominal pain, diarrhea, constipation, blood in stool, chest pain, edema. The patient stated a similar episode occurred 3-4 years ago but he did not seek medical attention then. He has been following with Dr. Mina of vascular surgery for carotid artery stenosis and PVD and had recent imaging done which still showed 83% stenosis. He noted he had been experiencing pain in his calves with ambulation for the past few years, and recently had prasugrel discontinued in Aug 2018, by his weather strip mechanic, Dr. Clifton. Pt reports taking meds on more days than not. CT head completed and showed no CT evidence of acute intracranial pathology. No change from 07/2017. Brain MRI completed, multiplefoci of restricted diffusion in the cortex of the left precentral gyrus, postcentral gyrus, superior parietal lobe, left arango radiata, left posterior preiventricular white matter, occipital cortex. On T2, no flow is seen in the veritcal, hosizontal segments of the petrous segmants of the left internal carotid, proximal left cavernous segment. Brain MRA completed, occluded left internal carotid artery. Neck CTA completed , complete occlusion of the cervical left internal artery. Rapid response this AM, CT head repeated, awaiting official report. Had asked for vascular eval at time of admission during ER conversation. Resident reported speaking with vascular and plan was for possibly outpatient eval Sunday, resident/primary team to follow up with Vascular regarding further mgmt as L ICA stenosis evolved and patient deficits correspond to this etiology. Allergies Allergy/AdvReac Type Severity Reaction Status Date / Time Penicillins Allergy Verified 12/26/18 16:34 Ambulatory Orders Amlodipine Besylate 10 mg PO DAILY 12/29/16 Aspirin [ASA -] 81 mg PO DAILY 12/29/16 Atorvastatin Ca [Lipitor] 80 mg PO DAILY 12/29/16 Metoprolol Succinate [Toprol XL -] 100 mg PO DAILY 12/29/16 Ezetimibe [Zetia -] 10 mg PO HS #60 tablet 08/20/18 Albuterol Sulfate Inhaler - [Ventolin HFA Inhaler -] 2 puff IN PRN 12/27/18 Prasugrel HCl 10 mg PO DAILY 12/27/18 Umeclidinium Raccoon [Incruse Ellipta] 1 puff IN PRN 12/27/18 Active Medications Aspirin (Asa -) 81 mg PO DAILY [facility] Last Admin: 12/28/18 11:02 Dose: 81 mg Atorvastatin Calcium (Lipitor -) 80 mg PO HS [facility] Last Admin: 12/27/18 21:22 Dose: 80 mg Chlordiazepoxide HCl (Librium -) 10 mg PO Q12H PRN PRN Reason: Signs/symptoms of Withdrawal Stop: 12/30/18 21:00 Chlordiazepoxide HCl (Librium -) 10 mg PO Q8H PRN PRN Reason: Signs/symptoms of Withdrawal Stop: 12/29/18 21:00 Chlordiazepoxide HCl (Librium -) 25 mg PO Q8H [facility] Stop: 12/28/18 13:01 Last Admin: 12/28/18 06:01 Dose: 25 mg Chlordiazepoxide HCl (Librium -) 15 mg PO Q8H [facility] Stop: 12/29/18 13:01 Chlordiazepoxide HCl (Librium -) 10 mg PO Q8H [facility] Stop: 12/30/18 21:01 Ezetimibe (Zetia -) 10 mg PO HS [facility] Last Admin: 12/27/18 21:22 Dose: 10 mg Folic Acid (Folic Acid -) 1 mg PO DAILY [facility] Last Admin: 12/28/18 11:02 Dose: 1 mg Heparin Sodium (Porcine) (Heparin -) 5,000 unit SQ TID [facility] Last Admin: 12/28/18 06:05 Dose: 5,000 unit Metoprolol Succinate (Toprol Xl -) 100 mg PO DAILY [facility] Last Admin: 12/28/18 11:02 Dose: 100 mg Nicotine (Nicoderm Patch -) 21 mg TD DAILY [facility] Last Admin: 12/28/18 11:02 Dose: 21 mg Thiamine HCl (Vitamin B1 Injection -) 200 mg IVPB DAILY [facility] Last Admin: 12/28/18 11:02 Dose: 200 mg Physical Examination Vital Signs: Vital Signs Temperature 97.5 F L 12/28/18 05:00 Pulse Rate 56 L 12/28/18 05:00 Respiratory Rate 20 12/28/18 05:00 Blood Pressure 145/78 12/28/18 05:00 O2 Sat by Pulse Oximetry (%) 98 12/27/18 21:00 Constitutional: Yes: No Distress, Anxious Eyes: Yes: Conjunctiva Clear, EOM Intact, PERRL, Other (No nystagmus) HENT: Yes: Atraumatic. No: Drooling, Pharyngeal Erythema Neck: Yes: Supple Cardiovascular: Yes: Regular Rate and Rhythm, S1, S2 Respiratory: Yes: CTA Bilaterally Gastrointestinal: Yes: Normal Bowel Sounds, Soft. No: Tenderness Renal/: No: CVA Tenderness - Left, CVA Tenderness - Right Musculoskeletal: No: Back Pain, Joint Stiffness, Joint Swelling, Muscle Pain, Muscle Weakness Extremities: No: Calf Tenderness, Cold, Erythema Edema: No Peripheral Pulses: Left Doralis Pedis: 1+, Right Dorsalis Pedis: 1+ Integumentary: No: Bruising Neurological: Yes: Alert, Oriented, Babinski negative, Cran Nerves II-XII Intact , Tremors, Other (paast pointing). No: Aphasia, Asterixis, Ataxia, Confusion, Dysarthria, Facial Droop, Lethargy, Numbness, Paresthesia, Seizure, Unsteady Gait CBCD WBC 8.6 K/mm3 (4.0-10.0) 12/28/18 06:10 RBC 4.26 M/mm3 (4.00-5.60) 12/28/18 06:10 Hgb 14.4 GM/dL (11.7-16.9) 12/28/18 06:10 Hct 42.3 % (35.4-49) 12/28/18 06:10 MCV 99.4 fl (80-96) H 12/28/18 06:10 MCHC 34.0 g/dl (32.0-35.9) 12/28/18 06:10 RDW 13.4 % (11.9-15.9) 12/28/18 06:10 Plt Count 339 K/MM3 (134-434) 12/28/18 06:10 MPV 8.4 fl (7.5-11.1) 12/28/18 06:10 CMP Sodium 140 mmol/L (136-145) 12/28/18 06:10 Potassium 4.3 mmol/L (3.5-5.1) 12/28/18 06:10 Chloride 107 mmol/L (98-107) 12/28/18 06:10 Carbon Dioxide 27 mmol/L (21-32) 12/28/18 06:10 Anion Gap 6 MMOL/L (8-16) L 12/28/18 06:10 BUN 15.5 mg/dL (7-18) 12/28/18 06:10 Creatinine 1.0 mg/dL (0.55-1.3) 12/28/18 06:10 Random Glucose 87 mg/dL (74-106) 12/28/18 06:10 Calcium 8.9 mg/dL (8.5-10.1) 12/28/18 06:10 Total Bilirubin 0.9 mg/dL (0.2-1) 12/28/18 06:10 AST 16 U/L (15-37) 12/28/18 06:10 ALT 20 U/L (13-61) 12/28/18 06:10 Alkaline Phosphatase 76 U/L (45-117) 12/28/18 06:10 Total Protein 6.2 g/dl (6.4-8.2) L 12/28/18 06:10 Albumin 3.8 g/dl (3.4-5.0) 12/28/18 06:10 CARDIAC ENZYMES Creatine Kinase 128 U/L (26-308) 12/26/18 17:00 Troponin I < 0.02 ng/ml (0.00-0.05) 12/26/18 17:00 Diagnostics: Head CT - completed Neck CTA - completed, complete occlusion of the cervical left internal artery Brain MRI - completed, multiple foci of restricted diffusion in the cortex of the left precentral gyrus, postcentral gyrus, superior parietal lobe, left arango radiata, left posterior preiventricular white matter, occipital cortex. On T2, no flow is seen in the veritcal, hosizontal segments of the petrous segmants of the left internal carotid, proximal left cavernous segment Brain MRI w/MRA - completed, occluded left internal carotid artery Assessment/Plan 58 yo M with a PMHx of Tobacco use, Penicillin allergy, HTN, COPD, CAD s/p stent 2015, carotid artery stenosis (neck CTA showed 83% stenosis of the L internal carotid artery) and ETOH abuse, presenting after a 30s-1min episode of difficulty articulating his speech and slight confusion. Pt noted the difficulty with speech at 14:00 on day of admission and presented at 16:30; NIH stroke scale upon arrival was 0 as he said his symptoms had resolved and therefore was not a TPA candidate. Of note, he consumes 8-10 drinks of hard alcohol daily - last drink was at 15:00 day of admission. Most recently admitted 08/2018 for hemoptysis. He denied alcohol related seizures, but reported never been off ETOH for long periods. Denied weight loss, fatigue, fever, extremity focal weakness, headache, n/t, n/v, abdominal pain, diarrhea, constipation, blood in stool, chest pain, edema. The patient stated a similar episode occurred 3-4 years ago but he did not seek medical attention then. He has been following with Dr. Mina of vascular surgery for carotid artery stenosis and PVD and had recent imaging done which still showed 83% stenosis. He noted he had been experiencing pain in his calves with ambulation for the past few years, and recently had prasugrel discontinued in Aug 2018, by his weather strip mechanic, Dr. Clifton. Pt reports taking meds on more days than not. CT head completed and showed no CT evidence of acute intracranial pathology. No change from 07/2017. Brain MRI completed, Brain MRA completed, Neck CTA completed. Brain MRI completed, multiple foci of restricted diffusion in the cortex of the left precentral gyrus, postcentral gyrus, superior parietal lobe, left arango radiata, left posterior preiventricular white matter, occipital cortex. On T2, no flow is seen in the veritcal, hosizontal segments of the petrous segmants of the left internal carotid, proximal left cavernous segment. Brain MRA completed , occluded left internal carotid artery. 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 Rapid response this AM, CT head repeated, awaiting official report. Had asked for vascular eval at time of admission during ER conversation. Resident reported speaking with vascular and plan was for possibly outpatient eval Sunday, resident/primary team to follow up with Vascular regarding further mgmt as L ICA stenosis evolved and patient deficits correspond to this etiology. Remains on ASA, defer to vascular regarding dual antiplatelet vs AC vs surgical intervention. LDL 110, already on max statin dose. Continue Monitor for alcohol related withdrawal, Librium protocol. monitor blood pressure, maintain <160/90. DVT ppx.
--- NOTE | 2018-12-28 11:33 | RAPID ---
Physical Examination Vital Signs: Vital Signs Temperature 97.5 F L 12/28/18 05:00 Pulse Rate 56 L 12/28/18 05:00 Respiratory Rate 20 12/28/18 05:00 Blood Pressure 145/78 12/28/18 05:00 O2 Sat by Pulse Oximetry (%) 98 12/27/18 21:00 Findings/Remarks: Patient examined on morning rounds. Patient found to have a change in neuorlogic status. Chalino Guillaume called and patient brought to CT. We called neuro Dr. Chun and he is aware of condition. Assesment: tongue deviation to the right, mild right droop, right arm drift, right leg drift, anomia with speech Plan: - head CT - discuss with Adiel, he will come and evaluate patient - continue to monitor on stroke floor - keep BP controlled Labs: CBC, BMP 12/28/18 06:10 12/28/18 06:10 Suspected CVA MD Exam Time (Code Lu Time): 11:20 CT Stroke ordered: Yes Stat "Chalino Lu" Consult to Neurology called & responded: Yes Last Known Well (Date): 12/27/18 Symptom Discovery (Date): 12/28/18 Symptom Discovery (Time): 11:20 - NIH Stroke Scale/Score Level of consciousness: Alert Ask patient the month and their age: Answers both correctly Ask patient to open & close eyes; make fist and let go: Obeys both correctly Best gaze (horizontal eye movement): Normal Visual field testing: No visual field loss Facial paresis (Show teeth/raise eyebrows/close eyes tight): Minor paralysis ( flattened nasolabial fold, asymmetry on smiling) Motor Function: Left Arm: Normal Motor Function: Right Arm: Drift Motor Function: Left Leg: Normal (extends leg 30 degrees for 5 seconds without drift) Motor Function: Right Leg: Drift Limb Ataxia: Present in one limb Sensory(Use pinprick test arms,legs,trunk,face/side to side): Normal Best language (Describe picture, name items, read sentences): Mild to moderate aphasia Dysarthria (read several words): Normal articulation Extinction and Inattention: No abnormality NIH Stroke Scale Score: 5
--- NOTE | 2018-12-28 12:41 | PN ---
Teaching Attending Note Name of Resident: Tonya Larios ATTENDING PHYSICIAN STATEMENT I saw and evaluated the patient. I reviewed the resident's note and discussed the case with the resident. I agree with the resident's findings and plan as documented. SUBJECTIVE: Patient found lying in bed, confused. OBJECTIVE: Vital Signs Period Temp Pulse Resp BP Sys/Mc[place]ur Pulse Ox Last 24 Hr 97.5 F-98.3 F 52-63 16-20 121-158/66-85 98-98 HEART: S1S2, RRR LUNGS: Clear ABDOMEN: Soft, non-tender, non-distended, normal BS EXTREMITIES: No edema NEUROLOGICAL: Alert, confused, mild right facial droop, tongue deviates to right , having difficulty finding words, RUE strength 4/5, RLE/LUE/LLE strength 5/5, ( +) right pronator drift, (+) dysmetria RUE Laboratory Results - last 24 hr 12/28/18 12/28/18 06:10 06:10 WBC 8.6 RBC 4.26 Hgb 14.4 Hct 42.3 MCV 99.4 H MCH 33.8 H MCHC 34.0 RDW 13.4 Plt Count 339 MPV 8.4 Sodium 140 Potassium 4.3 Chloride 107 Carbon Dioxide 27 Anion Gap 6 L BUN 15.5 Creatinine 1.0 Est GFR (CKD-EPI)AfAm 94.39 Est GFR (CKD-EPI)NonAf 81.44 Random Glucose 87 Calcium 8.9 Phosphorus 4.0 Magnesium 2.4 Total Bilirubin 0.9 AST 16 ALT 20 Alkaline Phosphatase 76 Total Protein 6.2 L Albumin 3.8 Current Medications Generic Name Dose Route Start Last Admin Trade Name Freq PRN Reason Stop Dose Admin Aspirin 81 mg 12/27/18 10:00 12/28/18 11:02 Asa - PO 81 mg DAILY [facility] Administration Atorvastatin Calcium 80 mg 12/27/18 22:00 12/27/18 21:22 Lipitor - PO 80 mg HS [facility] Administration Chlordiazepoxide HCl 10 mg 12/29/18 21:00 Librium - PO 12/30/18 21:00 Q12H PRN Signs/symptoms of Withdrawal Chlordiazepoxide HCl 10 mg 12/27/18 14:23 Librium - PO 12/29/18 21:00 Q8H PRN Signs/symptoms of Withdrawal Chlordiazepoxide HCl 25 mg 12/27/18 21:00 12/28/18 06:01 Librium - PO 12/28/18 13:01 25 mg Q8H [facility] Administration Chlordiazepoxide HCl 15 mg 12/28/18 21:00 Librium - PO 12/29/18 13:01 Q8H [facility] Chlordiazepoxide HCl 10 mg 12/29/18 21:00 Librium - PO 12/30/18 21:01 Q8H [facility] Ezetimibe 10 mg 12/27/18 22:00 12/27/18 21:22 Zetia - PO 10 mg HS [facility] Administration Folic Acid 1 mg 12/27/18 10:00 12/28/18 11:02 Folic Acid - PO 1 mg DAILY [facility] Administration Heparin Sodium (Porcine) 5,000 unit 12/27/18 14:00 12/28/18 06:05 Heparin - SQ 5,000 unit TID [facility] Administration Metoprolol Succinate 100 mg 12/27/18 10:00 12/28/18 11:02 Toprol Xl - PO 100 mg DAILY [facility] Administration Nicotine 21 mg 12/27/18 10:00 12/28/18 11:02 Nicoderm Patch - TD 21 mg DAILY [facility] Administration Thiamine HCl 200 mg 12/27/18 10:00 12/28/18 11:02 Vitamin B1 Injection - IVPB 200 mg DAILY [facility] Administration ASSESSMENT AND PLAN: This is a 58 year old man with a history of HTN, CAD with stent, LICA stenosis, COPD, alcohol abuse, current smoker who presented to the ED with difficulty speaking and RUE tinging. 1. TIA, now with recurrent symptoms - Code weeks called - Head CT shows no new findings - Echo shows normal LV systolic function, LVEF 55-60%, trace to mild MR, mild TR - Brain MRI/MRA shows multiple foci of restricted diffusion in cortex of left precentral gyrus, postcentral gyrus, superior parietal lobe, left arango radiata, left posterior periventricular white matter, occipital cortex; no flow in vertical, horizontal segments of petrous segments of left ICA, proximal left cavernous segment - Neck CTA shows complete occlusion of cervical left ICA - Continue aspirin, Lipitor, Zetia - Vascular surgery, neurology follow up 2. HTN - Continue Toprol XL - Norvasc held 3. COPD - Stable 4. CAD, history of stent - Continue aspirin, Lipitor, Zetia - Effient was recently discontinued secondary to falls 5. Continuous alcohol dependence - Continue Librium detox, thiamine, folic acid - Add multivitamin 6. RML ground glass lung opacity - Seen on CT 08/20/18 - did not have follow up imaging after 3 months as recommended 7. Nicotine dependence - Continue nicotine patch
[2018-12-28 12:49] VITALS: BMI 24.0
--- NOTE | 2018-12-28 14:51 | PN ---
Physical Exam: SUBJECTIVE: Patient seen this morning and had a change in neuro status, code gruber called. OBJECTIVE: Vital Signs Period Temp Pulse Resp BP Sys/Mcarthur Pulse Ox Last 24 Hr 97.5 F-98.3 F 52-63 16-20 121-158/66-85 98-98 GENERAL: The patient is awake, alert, and fully oriented, in no acute distress. HEAD: Normal with no signs of trauma. LUNGS: Breath sounds equal, clear to auscultation bilaterally, no wheezes, no crackles, no accessory muscle use. HEART: Regular rate and rhythm, S1, S2 without murmur, rub or gallop. ABDOMEN: Soft, nontender, nondistended, normoactive bowel sounds, no guarding, no rebound, no hepatosplenomegaly, no masses. EXTREMITIES: 2+ pulses, warm, well-perfused, no edema. NEUROLOGICAL: Cranial nerves II through XII grossly intact. Some anomia, very mild right sided facial droop, right pronator drift RA and RL, tongue deviates to the right SKIN: Warm, dry, normal turgor, no rashes or lesions noted Laboratory Results - last 24 hr 12/28/18 12/28/18 06:10 06:10 WBC 8.6 RBC 4.26 Hgb 14.4 Hct 42.3 MCV 99.4 H MCH 33.8 H MCHC 34.0 RDW 13.4 Plt Count 339 MPV 8.4 Sodium 140 Potassium 4.3 Chloride 107 Carbon Dioxide 27 Anion Gap 6 L BUN 15.5 Creatinine 1.0 Est GFR (CKD-EPI)AfAm 94.39 Est GFR (CKD-EPI)NonAf 81.44 Random Glucose 87 Calcium 8.9 Phosphorus 4.0 Magnesium 2.4 Total Bilirubin 0.9 AST 16 ALT 20 Alkaline Phosphatase 76 Total Protein 6.2 L Albumin 3.8 Active Medications Aspirin (Asa -) 81 mg PO DAILY [facility] Last Admin: 12/28/18 11:02 Dose: 81 mg Atorvastatin Calcium (Lipitor -) 80 mg PO HS [facility] Last Admin: 12/27/18 21:22 Dose: 80 mg Chlordiazepoxide HCl (Librium -) 10 mg PO Q12H PRN PRN Reason: Signs/symptoms of Withdrawal Stop: 12/30/18 21:00 Chlordiazepoxide HCl (Librium -) 10 mg PO Q8H PRN PRN Reason: Signs/symptoms of Withdrawal Stop: 12/29/18 21:00 Chlordiazepoxide HCl (Librium -) 15 mg PO Q8H [facility] Stop: 12/29/18 13:01 Chlordiazepoxide HCl (Librium -) 10 mg PO Q8H [facility] Stop: 12/30/18 21:01 Clopidogrel Bisulfate (Plavix -) 75 mg PO DAILY [facility] Ezetimibe (Zetia -) 10 mg PO HS [facility] Last Admin: 12/27/18 21:22 Dose: 10 mg Folic Acid (Folic Acid -) 1 mg PO DAILY [facility] Last Admin: 12/28/18 11:02 Dose: 1 mg Heparin Sodium (Porcine) (Heparin -) 5,000 unit SQ TID [facility] Last Admin: 12/28/18 06:05 Dose: 5,000 unit Metoprolol Succinate (Toprol Xl -) 100 mg PO DAILY [facility] Last Admin: 12/28/18 11:02 Dose: 100 mg Nicotine (Nicoderm Patch -) 21 mg TD DAILY [facility] Last Admin: 12/28/18 11:02 Dose: 21 mg Thiamine HCl (Vitamin B1 Injection -) 200 mg IVPB DAILY [facility] Last Admin: 12/28/18 11:02 Dose: 200 mg ASSESSMENT/PLAN: Patient is a 58 y/o male with a history of HTN COPD, CAD 2015 who is admitted for left carotid stenosis. #TIA with left carotid stenosis and left MCA stenosis - Seen on MRI - CT: complete stenosis of left carotid artery - patient with pronator drift and anomia, code gruber called this morning with change in mental status, NIHH scale of 4 at that time - Head CT: no acute change, Dr. Chun aware - continue asprin 81 mg, plavix 75 mg - atorvastatin 80 mg hs - Patient will f/u with Leopoldo as an outpatient, no surgical intervention indicated, medical management at this time - patient does not have capacity at this time to make his own decisions, will continue treatment - maintain BP < 160/90 #alcohol abuse - librium taper, day 2 - continue thiamine and folate #HTN - toprolol 100 daily #nicotine dependence - nicotine patch #DVT ppx - heparin TID FEN - low sodium diet Dispo: continue librium taper and monitor on tele Visit type - Emergency Visit Emergency Visit: No - New Patient This patient is new to me today: No - Critical Care Critical Care patient: No
[2018-12-28] MEDS: ATORVASTATIN CA 80 MG TABLET (FP) PO SCH (22:17)
[2018-12-28] MEDS: chlordiazePOXIDE 5 MG CAPSULE PO SCH (22:17)
[2018-12-28] MEDS: EZETIMIBE 10 MG TABLET (FP) PO SCH (22:18)
[2018-12-29] MEDS ORDERED: chlordiazePOXIDE 5 MG CAPSULE PO PRN (05:00)
[2018-12-29] MEDS ORDERED: chlordiazePOXIDE 5 MG CAPSULE PO SCH (05:00)
[2018-12-29] MEDS: chlordiazePOXIDE 5 MG CAPSULE PO SCH (05:34)
[2018-12-29] MEDS: HEPARIN NA (PORCINE) 5,000 UNITS/ML 1ML VIAL SQ SCH (05:39)
[2018-12-29 07:30] LABS: HEMATOCRIT 43.2 % (35.4-49); HEMOGLOBIN 14.9 GM/dL (11.7-16.9); MCH 34.3 pg (25.7-33.7); MCHC 34.4 g/dl (32.0-35.9); MEAN CELL VOLUME 99.7 fl (80-96); MEAN PLT VOLUME 8.6 fl (7.5-11.1); PLATELET COUNT 340 K/MM3 (134-434); RBC 4.34 M/mm3 (4.00-5.60); WHITE BLOOD COUNT 9.6 K/mm3 (4.0-10.0)
[2018-12-29 08:11] LABS: ALBUMIN 3.8 g/dl (3.4-5.0); BILIRUBIN,TOTAL 0.7 mg/dL (0.2-1); BLOOD UREA NITROGEN 16.3 mg/dL (7-18); POTASSIUM 4.4 mmol/L (3.5-5.1); TOT PROT 6.6 g/dl (6.4-8.2)
--- NOTE | 2018-12-29 09:32 | RAPID ---
Physical Examination Vital Signs: Vital Signs Temperature 96.8 F L 12/29/18 05:32 Pulse Rate 56 L 12/29/18 05:32 Respiratory Rate 20 12/29/18 05:32 Blood Pressure 139/80 12/29/18 05:32 O2 Sat by Pulse Oximetry (%) 98 12/28/18 09:00 Labs: CBC, BMP 12/29/18 05:50 12/29/18 05:50 Rapid Response - Rapid Response Assessment: Code Guillaume called, pt having complete R sided weakness in face, arm, leg. new from last night. 150s/90s 63 98% Alert, making sounds but not responding w/ complete words. follows commands PERRLA, eye movements in tact on L side, however unclear on R side as pt may not have been giving effort sig R facial droop, w/ some limitation in R eyebrow movement RUE no movement, flacid RLE minimal movement LUE LLE able to lift limbs against gravity Plan: - head CT - continue to monitor on stroke floor - keep BP controlled covering physician Dr Srivastava present and made aware of case.
--- NOTE | 2018-12-29 09:52 | DS ---
Physical Examination Vital Signs: Vital Signs Temperature 96.8 F L 12/29/18 05:32 Pulse Rate 56 L 12/29/18 05:32 Respiratory Rate 20 12/29/18 05:32 Blood Pressure 139/80 12/29/18 05:32 O2 Sat by Pulse Oximetry (%) 98 12/28/18 09:00 Findings/Remarks: Code stroke called for acute right arm paralysis and facial droop. Patient is awake and alert, dysarthria. failed swallow eval this AM Constitutional: Yes: Well Nourished Cardiovascular: Yes: WNL, Regular Rate and Rhythm Respiratory: Yes: WNL, Regular, CTA Bilaterally Gastrointestinal: Yes: WNL, Normal Bowel Sounds, Soft Extremities: Yes: WNL Edema: No Neurological: Yes: Alert, Oriented, Dysarthria, Facial Droop (right), Weakness ( right arm flaccid paralysis, right leg4/5 motor strength, left side 5/5) Labs: CBC, BMP 12/29/18 05:50 12/29/18 05:50 Discharge Summary Reason For Visit: TRANSIENT ISCHEMIC ATTACK, WEAKNESS Hospital Course: 58 yo M with a PMHx of Tobacco use, Penicillin allergy, HTN, COPD, CAD s/p stent 2015, carotid artery stenosis (neck CTA showed 83% stenosis of the L internal carotid artery) and ETOH abuse, presenting after a 30s-1min episode of difficulty articulating his speech and slight confusion. Pt noted the difficulty with speech at 14:00 on day of admission and presented at 16:30; NIH stroke scale upon arrival was 0 as he said his symptoms had resolved and therefore was not a TPA candidate. Of note, he consumes 8-10 drinks of hard alcohol daily - last drink was at 15:00 day of admission. Most recently admitted 08/2018 for hemoptysis. He denied alcohol related seizures, but reported never been off ETOH for long periods. Denied weight loss, fatigue, fever, extremity focal weakness, headache, n/t, n/v, abdominal pain, diarrhea, constipation, blood in stool, chest pain, edema. The patient stated a similar episode occurred 3-4 years ago but he did not seek medical attention then. He has been following with Dr. Mina of vascular surgery for carotid artery stenosis and PVD and had recent imaging done which still showed 83% stenosis. He noted he had been experiencing pain in his calves with ambulation for the past few years, and recently had prasugrel discontinued in Aug 2018, by his network mgr, Dr. Clifton. Pt reports taking meds on more days than not. CT head completed and showed no CT evidence of acute intracranial pathology. No change from 07/2017. MRI brain to confirm no infarct. Also advised evaluation from vascular specialist to determine if intervention of carotid artery is warranted in the context of his right sided transient deficit with left carotid artery stenosis. MRI/MRA showed complete occlusion of left ICA CTA ordered to look for string sign - showed complete occlusion of left ICA This morning patient had acute event of right sided weakness. Code stroke called and CT head with several small acute infarcts in left arango radiata, possible new or evolving infarcts. Vascular, Dr. Mina, spoke to Dr. Lopez in radiology - suggests pt might have superimposed clot. From a vascular standpoint since the carotid is 100% closed - there is no surgical intervention. However if there is any neuro-radiology intervention that is needed - pt would need to be transferred to tertiary center, pt being transferred to [facility]. #TIA with left carotid stenosis and left MCA stenosis - See above - patient had neck CTA, brain MRI/MRA, CT head x 3, echocardiogram and cxr, all imaging transcribed to CD #alcohol abuse - librium taper, day 3 - continue thiamine and folate #HTN - toprol 100 daily with parameters, allow for permissive HTN #nicotine dependence - nicotine patch Brain MRI completed, multiple foci of restricted diffusion in the cortex of the left precentral gyrus, postcentral gyrus, superior parietal lobe, left arango radiata, left posterior preiventricular white matter, occipital cortex. On T2, no flow is seen in the vertical, horizontal segments of the petrous segmants of the left internal carotid, proximal left cavernous segment. Brain MRA completed, occluded left internal carotid artery Neck CTA completed, complete occlusion of the cervical left internal artery Flow is seen within the left cavernous carotid artery as well as the left anterior and middle cerebral arteries secondary to collateral flow from ipsilateral external carotid artery branches and possibly retrograde flow via the ipsilateral external carotid artery. The degree of flow is decreased in comparison to the contralateral carotid circulation (best appreciated on MRA) Case was discussed extensively with Dr. Chano Mina (vascular) and Dr. Chun ( neurology) Condition: Worsened - Instructions Referrals: Chano Mina MD [Non Staff, Medical] - 12/30/18 Disposition: TRANSFER ACUTE CARE/OTHER HOSP - Home Medications Comprehensive Discharge Medication List: Current Medications Generic Name Dose Route Start Last Admin Trade Name Kathya PRN Reason Stop Dose Admin Aspirin 81 mg 12/27/18 10:00 12/28/18 11:02 Asa - PO 81 mg DAILY [facility] Administration Atorvastatin Calcium 80 mg 12/27/18 22:00 12/28/18 22:17 Lipitor - PO 80 mg HS [facility] Administration Chlordiazepoxide HCl 10 mg 12/29/18 21:00 Librium - PO 12/30/18 21:00 Q12H PRN Signs/symptoms of Withdrawal Chlordiazepoxide HCl 10 mg 12/27/18 14:23 Librium - PO 12/29/18 21:00 Q8H PRN Signs/symptoms of Withdrawal Chlordiazepoxide HCl 15 mg 12/28/18 21:00 12/29/18 05:34 Librium - PO 12/29/18 13:01 Not Given Q8H [facility] Chlordiazepoxide HCl 10 mg 12/29/18 21:00 Librium - PO 12/30/18 21:01 Q8H [facility] Clopidogrel Bisulfate 75 mg 12/29/18 10:00 Plavix - PO DAILY [facility] Ezetimibe 10 mg 12/27/18 22:00 12/28/18 22:18 Zetia - PO 10 mg HS [facility] Administration Folic Acid 1 mg 12/27/18 10:00 12/28/18 11:02 Folic Acid - PO 1 mg DAILY [facility] Administration Heparin Sodium (Porcine) 5,000 unit 12/27/18 14:00 12/29/18 05:39 Heparin - SQ 5,000 unit TID [facility] Administration Metoprolol Succinate 100 mg 12/27/18 10:00 12/28/18 11:02 Toprol Xl - PO 100 mg DAILY [facility] Administration Multivitamins/Minerals 1 each 12/29/18 10:00 Theragran-M PO DAILY [facility] Nicotine 21 mg 12/27/18 10:00 12/28/18 11:02 Nicoderm Patch - TD 21 mg DAILY [facility] Administration Thiamine HCl 100 mg 12/29/18 10:00 Vitamin B1 - PO DAILY [facility]
--- NOTE | 2018-12-29 09:54 | PN ---
Progress Note (short form) - Note Progress Note: [facility] Pt came in with left TIA on admissoin. MRI/MRA showed complete ooclusion of left ICA CTA ordrered to look for string sign - showed complete occlusion of left ICA Today pt had acute event of right sided weakness. Spoke to Dr. Lopez in radiology - suggests pt might have superimposed clot. From a vascular standpoint since the carotid is 100% closed - there is no surgical intervention. However if there is any neuro-radiology intervention that is needed - pt would need to be transferred to tertiary center. Spoke to medical team - pt being transferred to [facility]. Chano Mina DO
[2018-12-29] MEDS ORDERED: MULTIVITAMINS THER W-MINERALS COMBO TABLET (FP) PO SCH (10:00)
[2018-12-29] MEDS ORDERED: CLOPIDOGREL BISULFATE 75 MG TABLET (FP) PO SCH (10:00)
[2018-12-29] MEDS ORDERED: THIAMINE HCL 100 MG TABLET (FP) PO SCH (10:00)
[2018-12-29 10:56] VITALS: BP 156/78; PULSE 62; TEMP 98.3
--- NOTE | 2018-12-29 12:13 | PN ---
Progress Note (short form) - Note Progress Note: Contact by nurse this AM with progression of RUE symptoms, recommended repeat Ct head. Spoke with hosptialist about reaching out to vascular for further mgmt as L carotid pathology seems to be etiology. Also spoke to neurointerventional at [facility] (Dr. Barnes). Hospitalist informed me patient being transferred to [facility] for further eval/ mgmt. No objection to this.
[2018-12-29] MEDS ORDERED: chlordiazePOXIDE HCL 10 MG CAPSULE PO PRN (21:00)
[2018-12-29] MEDS ORDERED: chlordiazePOXIDE HCL 10 MG CAPSULE PO SCH (21:00)
== END 2018-12-29 10:39 | disposition short-term general hospital (02) | DRG 45 ==
LOC: JER 16:27 → JERBED 23:58 → J4W 12-27 15:30
PROVIDERS: ADMIT Internal Medicine; ATTEND Internal Medicine
DX: I63.232 Cerebral infarction due to unspecified occlusion or stenosis of left carotid arteries (principal); F17.210 Nicotine dependence, cigarettes, uncomplicated; R53.1 Weakness; R47.1 Dysarthria and anarthria; J44.9 Chronic obstructive pulmonary disease, unspecified; I25.10 Atherosclerotic heart disease of native coronary artery without angina pectoris; F10.20 Alcohol dependence, uncomplicated; G45.9 Transient cerebral ischemic attack, unspecified; I10 Essential (primary) hypertension; Z98.61 Coronary angioplasty status; R29.705 NIHSS score 5; G81.91 Hemiplegia, unspecified affecting right dominant side
CPT/HCPCS: 36415; 70450-TC; 70498-TC; 70544-TC; 70551-TC; 71046-TC-FY; 80053; 82465; 82550; 82962; 83036; 83718; 83721; 83735; 84100; 84478; 84484; 85025; 85027; 85610; 93005; 93010; 93306-TC; 99285-25; J1644